=== PATIENT | female | born 1980 | race Caucasian/White ===

== ENCOUNTER 2016-11-22 17:35 | Emergency (ER) | payer OTHER ==
[2016-11-22 18:02] VITALS: BP 143/84
[2016-11-22] MEDS ORDERED: NS 0.9% 1000 ML* 1,000 ML IV ONE (18:38)
--- NOTE | 2016-11-22 19:12 | UC ---
chalino Rivera Timothy, scribed for Jimena Harmon MD on 11/22/16 at 1810 . Palpitation/Dysrhythmia HP - HPI Summary HPI Summary: Yareli Nicolas is a 36 yo female presenting to [facility] with heart palpitations at 1720 today. She was driving at the time of onset. She states Sx lasted approximately 15 minutes. She denies any pain, but states she was slightly SOB when talking, and felt a little light headed. She states upon arrival to [facility] she felt better, and that her heart was no longer racing. She has a Hx of hypothyroidism, SVT, sleep apnea, GERD, nephrolithiasis, fatty liver, depression , anxiety, and tobacco use for the past 12 years. - History of Current Complaint Stated Complaint: HEART RACING Time Seen by Provider: 11/22/16 18:11 Hx Obtained From: Patient, Family/Deputy [employer] - Hx Last Menstrual Period: currently having Onset/Duration: Sudden Onset Timing: Intermittent Episodes Lasting: - 15 minutes Severity Initially: Moderate Severity Currently: Moderate Pain Intensity: 0 Pain Scale Used: 0-10 Numeric Character: Fast, Irregular Aggravating Factor(s): Nothing Alleviating Factor(s): Nothing Associated Signs & Symptoms: Positive: Lightheadedness, Shortness of Breath. Negative: Chest Pain - Allergy/Home Medications Allergies/Adverse Reactions: Allergies Allergy/AdvReac Type Severity Reaction Status Date / Time Povidone Iodine Allergy Severe Rash Verified 11/22/16 17:53 [From Betadine] Penicillin V Allergy Intermediate Hives Verified 11/22/16 17:53 Adhesive Tape Allergy Rash Verified 11/22/16 17:53 Albuterol AdvReac Intermediate svt Verified 11/22/16 17:53 Home Medications: Home Medications Budesonide/Formote 160/4.5(NF) [Symbicort 160/4.5 (NF)] 1 puff BID 11/22/16 [ History Confirmed 11/22/16] Omeprazole CAP* [Prilosec CAP* 20 MG] 40 mg PO 0600 11/22/16 [History Confirmed 11/22/16] PMH/Surg Hx/FS Hx/Imm Hx Endocrine History Of: Reports: Hypothyroidism - "one of her numbers is abnormal " Denies: Diabetes, Hyperthyroidism, Dyslipidemia Cardiovascular History Of: Reports: Cardiac Disorders - svt Respiratory History Of: Reports: Asthma GI/ History Of: Reports: Gastroesophageal Reflux - She takes omeprazole for this, but she is not taking any at this time., Kidney Stones - ESWL 3-4 YRS AGO Psychological History Of: Reports: Anxiety - ON MEDS, Depression - ON MEDS - Surgical History Surgical History: Yes Surgery Procedure, Year, and Place[place] [place] [facility] [place] Calcane[place] [facility] [place]SI[place]/ ADENOIDECTOMY, 1987. gallbladder - Family History Known Family History: Positive: Cardiac Disease - Father from [place] at 48 years old. Negative: Hypertension, Diabetes - Social History Lives: With Family Alcohol Use: Rare Substance Use Type: None Smoking Status (MU): Former Smoker Type: Cigarettes Amount Used/How Often: 1/2 ppd Length of Time of Smoking/Using Tobacco: 10 years Have You Smoked in the Last Year: No When Did the Patient Quit Smoking/Using Tobacco: 2 WEEKS AGO Household Exposure Type: Cigarettes - Immunization History Most Recent Influenza Vaccination: none Review of Systems Constitutional: Negative Skin: Negative Eyes: Negative ENT: Negative Respiratory: Shortness Of Breath Cardiovascular: Palpitations Gastrointestinal: Negative Genitourinary: Negative Motor: Negative Neurovascular: Negative Musculoskeletal: Negative Neurological: Other - light-headedness Psychological: Anxious - with second bout of palpitations, pt is anxious, stating "I don't want to "-reassured All Other Systems Reviewed And Are Negative: Yes Physical Exam Triage Information Reviewed: Yes Appearance: Well-Appearing, Well-Nourished, Ill-Appearing - flushing in neck Vital Signs: Initial Vital Signs Temp 98 F 11/22/16 17:56 Pulse 112 11/22/16 17:56 Resp 18 11/22/16 17:56 BP 143/84 11/22/16 17:56 Pulse Ox 98 11/22/16 17:56 Vital Signs Reviewed: Yes Eyes: Positive: Conjunctiva Clear. Negative: Discharge ENT: Positive: Hearing grossly normal, Other: - enlarged thyroid. Negative: Muffled/hoarse voice Neck: Positive: Supple, Nontender, Other: - palpable enlarged thyroid Respiratory: Positive: Lungs clear, Normal breath sounds, No respiratory distress Cardiovascular: Positive: RRR - 88bpm, NSR, No Murmur, Pulses Normal, Brisk Capillary Refill Musculoskeletal: Positive: Strength Intact, ROM Intact Neurological: Positive: Alert, Muscle Tone Normal Psychological Exam: Normal Skin Exam: Normal Diagnostics - EKG Cardiac Rate: Tachycardia - 173: Sinus tachcardia, normal AV/IV conduction time. Rate is 109 bPM. Normal axis. No acute changes. 1822: Sinus tachycardia @ 104 BPM. Normal AV/IV conduction time, normal axis. No acute changes. No change from EKG 1736 today. Re-Evaluation - Re-Evaluation First Eval Re-Evaluation Time: 18:24 Change: Worse Comment: Pt states she is having another SVT episode, and her heart rate feels abnormally fast. Second Eval Re-Evaluation Time: 18:43 Change: Unchanged Comment: Pt is feeling anxious, her concerns are being soothed. She denies CP, her cardiac rate remains in the 100's, her lungs are clear. Palpitations Course/Dx - Course Course Of Treatment: Yareli Nicolas is a 36 yo female presenting to [facility] with heart palpitations at 1720 today while driving, as well as SOB and light- headedness. Her Sx resolved when she arrived at urgent care and then recurred. Pt auscultated by me at rate of approx 200 with second bout of palpitations. After review of her EKG's, clinical examination, and discussion with Dr. Caal at [facility], she will be transferred to [facility] for further evaluation and higher level of care - Differential Dx/Diagnosis Differential Diagnosis/HQI/PQRI: Medication Induced, Paroxymal SVT, Other - thyroid disease Provider Diagnoses: Palpitations/sinus tachycardia. hx SVT - Physician Notifications Discussed Patient Care With: 1829 - Dr. Caal (emergency medicine) - Discussed Pt condition, agrees to see in ED. 1830 - Dr. De Luna (cardiology) - Discussed Pt condition, confirmed that Pt should be sent to [facility]. 1832 - [facility] - Described Pt's symptoms, will transfer to [facility] Instructed by Provider To: MD Will See In ED Discharge - Discharge Plan Condition: Stable Disposition: TRANS [facility]HER [facility] Discharge Disposition Comment: Transferred to [facility] by ambulance for higher level of care Patient Education Materials: Supraventricular Tachycardia (ED), Palpitations ( ED) Referrals: Non Staff,Doctor [Medical Doctor] - 2 Days Additional Instructions: Please follow up with your primary care physician regarding your visit to urgent care today. Return to urgent care or the emergency department with any new or recurring symptoms. The documentation as recorded by the chalino donald Timothy accurately reflects the service I personally performed and the decisions made by me, Jimena Harmon MD.
== END 2016-11-22 19:00 | disposition short-term general hospital (02) ==
LOC: UCEAST 17:35
DX: R00.2 Palpitations (principal); R00.0 Tachycardia, unspecified; R42 Dizziness and giddiness; R06.02 Shortness of breath; Z88.0 Allergy status to penicillin; Z88.8 Allergy status to other drugs, medicaments and biological substances; Z87.891 Personal history of nicotine dependence
CPT/HCPCS: 93005; 99213; G0463

== ENCOUNTER → 2016-11-22 19:12 | Emergency (ER) | payer OTHER ==
[~2016-11-22 19:12] MED LIST: LORazepam TAB(*) 1 MG PO ONE
[2016-11-22 19:23] VITALS: BP 125/89
[2016-11-22 19:42] LABS: Hematocrit 39 % (35-47); Hemoglobin 12.7 g/dl (12.0-16.0); Mean Corpuscular HGB Conc 32 g/dl (31-36); Mean Corpuscular Hemoglobin 26 pg (27-31); Mean Corpuscular Volume 79 fL (80-97); Mean Platelet Volume 8 um3 (7.4-10.4); Red Blood Count 4.99 10^6/ul (4.0-5.4); Red Cell Distribution Width 15 % (10.5-15); White Blood Count 9.3 10^3/ul (3.5-10.8)
[2016-11-22 20:08] LABS: Albumin 4.3 g/dL (3.2-5.2); BUN/Creatinine Ratio 11.8 (8-20); Calcium 9.2 mg/dL (8.6-10.3); EGFR African American 96.8 (>60); EGFR Non-African American 75.3 (>60); Globulin 3.2 g/dL (2-4); Magnesium 2.1 mg/dL (1.9-2.7); Total Bilirubin 0.5 mg/dL (0.2-1.0); Total Protein 7.5 g/dL (6.4-8.9)
--- NOTE | 2016-11-22 21:16 | ED ---
Lauro Rivera Billy, scribed for Jaren Garcia MD on 11/22/16 at 1933 . Palpitations / Dysrhythmia - HPI Summary HPI Summary: Patient is a 36 year-old female with a history of SVT coming to [facility] from [facility] presenting with palpitations starting at 1720 today. She reports that her symptoms began at rest, while she was driving. Since the time of onset earlier this afternoon, she has had several episodes each lasting several minutes. She denies any pain at this time, but reports SOB and lightheadedness. Nothing makes her symptoms better or worse. She also reports feeling quite anxious here in the ED. The last episode of SVT prior to today was several months ago. She denies any known triggers (such as caffeine or nicotine) for todays episode. She follows Dr. Ro (cardiology) but states that she is currently not taking any medications. - History of Current Complaint Chief Complaint: EDDysrhythmPalp Time Seen by Provider: 11/22/16 19:14 Hx Obtained From: Patient Onset/Duration: Gradual Onset, Lasting Hours, Still Present Timing: Intermittent Episodes Lasting: - minutes Severity Initially: Moderate Severity Currently: Moderate Character: Fast Aggravating: Nothing Alleviating: Nothing Associated Signs & Symptoms: Lightheadedness, Shortness of Breath - Allergy/Home Medications Allergies/Adverse Reactions: Allergies Allergy/AdvReac Type Severity Reaction Status Date / Time Povidone Iodine Allergy Severe Rash Verified 11/22/16 17:53 [From Betadine] Penicillin V Allergy Intermediate Hives Verified 11/22/16 17:53 Adhesive Tape Allergy Rash Verified 11/22/16 17:53 Albuterol AdvReac Intermediate svt Verified 11/22/16 17:53 PMH/Surg Hx/FS Hx/Imm Hx Endocrine/Hematology History: Reports: Hx Thyroid Disease - HYPO, [place] FOR 7 MONTHS. Her thyroid blood tests were good w/o Rx. Denies: Hx Anticoagulant Therapy, Hx Diabetes Cardiovascular History: Denies: Hx Congestive Heart Failure, Hx Deep Vein Thrombosis, Hx Hypertension , Hx Myocardial Infarction, Hx Pacemaker/ICD, Other Cardiovascular Problems/ Disorders Respiratory History: Reports: Hx Asthma, Hx Sleep Apnea - SLEEP STUDY CURRENTLY Denies: Hx Chronic Obstructive Pulmonary Disease (COPD), Hx Lung Cancer, Hx Pneumonia, Hx Pulmonary Embolism, Other Respiratory Problems/Disorders GI History: Reports: Hx Gastroesophageal Reflux Disease Denies: Hx Gall Bladder Disease, Hx Gastrointestinal Bleed, Hx Ulcer, Hx Urosepsis History: Reports: Hx Kidney Infection, Hx Kidney Stones - ESWL 3-4 YRS AGO, Other Problems/Disorders - Kidney stone 3-4 years ago Denies: Hx Renal Disease Musculoskeletal History: Denies: Hx Rheumatoid Arthritis, Hx Osteoporosis Sensory History: Denies: Hx Contacts or Glasses, Hx Hearing Aid Opthamlomology History: Denies: Hx Contacts or Glasses Neurological History: Denies: Hx Dementia, Hx Migraine, Hx Seizures, Hx Transient Ischemic Attacks (TIA), Other Neuro Impairments/Disorders Psychiatric History: Reports: Hx Anxiety - ON MEDS, Hx Depression - ON MEDS Denies: Hx Panic Disorder, Hx Schizophrenia, Hx Bipolar Disorder - Cancer History Cancer Type, Location and Year: none - Surgical History Surgery Procedure, Year, and Place: Tubal Ligation 2005[place] [place]. RIGHT Kidney Stone surgery 3-4 years [place] [facility] [place],. Left FOOT Calcaneus repair 10 years ago [facility] [place] TONSILECTOMY/ ADENOIDECTOMY, 1987. gallbladder Hx Anesthesia Reactions: No - Immunization History Date of Tetanus Vaccine: 2012 Date of Influenza Vaccine: 2014 Infectious Disease History: No Infectious Disease History: Denies: Hx Clostridium Difficile, Hx Hepatitis, Hx Human Immunodeficiency Virus (HIV), Hx of Known/Suspected MRSA, Hx Shingles, Hx Tuberculosis, Hx Known/ Suspected VRE, Hx Known/Suspected VRSA, History Other Infectious Disease, Traveled Outside the [place] in Last 30 Days - Family History Known Family History: Positive: Cardiac Disease - Father from [place] at 48 years old. Negative: Hypertension, Diabetes - Social History Alcohol Use: Rare Substance Use Type: Reports: None Smoking Status (MU): Former Smoker Type: Cigarettes Amount Used/How Often: 1/2 ppd Length of Time of Smoking/Using Tobacco: 10 years Have You Smoked in the Last Year: No Review of Systems Positive: Palpitations Positive: Shortness Of Breath Neurological: Other - lightheaded Positive: Anxious All Other Systems Reviewed And Are Negative: Yes Physical Exam Triage Information Reviewed: Yes Vital Signs On Initial Exam: Initial Vitals Temp Pulse Resp BP Pulse Ox 99.1 F 94 14 125/89 98 11/22/16 19:18 11/22/16 19:18 11/22/16 19:18 11/22/16 19:18 11/22/16 19:18 Vital Signs Reviewed: Yes Appearance: Positive: Well-Appearing, No Pain Distress - anxious Skin: Positive: Warm Head/Face: Positive: Normal Head/Face Inspection Eyes: Positive: INGA Neck: Positive: Supple Respiratory/Lung Sounds: Positive: Clear to Auscultation, Breath Sounds Present Cardiovascular: Negative: Murmur Abdomen Description: Positive: Nontender, Soft Bowel Sounds: Positive: Present Neurological: Positive: Sensory/Motor Intact, Alert, Oriented to Person Place, Time Psychiatric: Positive: Anxious Diagnostics - Vital Signs Vital Signs Temp Pulse Resp BP Pulse Ox 11/22/16 19:18 99.1 F 94 14 125/89 98 - Laboratory Lab Results: Lab Results 11/22/16 11/22/16 Range/Units 18:35 18:35 WBC 9.3 (3.5-10.8) 10^3/ul RBC 4.99 (4.0-5.4) 10^6/ul Hgb 12.7 (12.0-16.0) g/dl Hct 39 (35-47) % MCV 79 L (80-97) fL MCH 26 L (27-31) pg MCHC 32 (31-36) g/dl RDW 15 (10.5-15) % Plt Count 341 (150-450) 10^3/ul MPV 8 (7.4-10.4) um3 Neut % (Auto) 46.1 (38-83) % Lymph % (Auto) 38.6 (25-47) % [place] % (Auto) 6.1 (1-9) % Eos % (Auto) 7.9 H (0-6) % Baso % (Auto) 1.3 (0-2) % Absolute Neuts (auto) 4.3 (1.5-7.7) 10^3/ul Absolute Lymphs (auto) 3.6 (1.0-4.8) 10^3/ul Absolute Monos (auto) 0.6 (0-0.8) 10^3/ul Absolute Eos (auto) 0.7 H (0-0.6) 10^3/ul Absolute Basos (auto) 0.1 (0-0.2) 10^3/ul Absolute Nucleated RBC 0 10^3/ul Nucleated RBC % 0 Sodium 135 (133-145) mmol/L Potassium 4.0 (3.5-5.0) mmol/L Chloride 102 (101-111) mmol/L Carbon Dioxide 27 (22-32) mmol/L Anion Gap 6 (2-11) mmol/L BUN 10 (6-24) mg/dL Creatinine 0.85 (0.51-0.95) mg/dL Est GFR ( Amer) 96.8 (>60) Est GFR (Non-Af Amer) 75.3 (>60) BUN/Creatinine Ratio 11.8 (8-20) Glucose 85 (70-100) mg/dL Calcium 9.2 (8.6-10.3) mg/dL Magnesium 2.1 (1.9-2.7) mg/dL Total Bilirubin 0.50 (0.2-1.0) mg/dL AST 36 (13-39) U/L ALT 46 (7-52) U/L Alkaline Phosphatase 101 (34-104) U/L Troponin I 0.00 (<0.04) ng/mL Total Protein 7.5 (6.4-8.9) g/dL Albumin 4.3 (3.2-5.2) g/dL Globulin 3.2 (2-4) g/dL Albumin/Globulin Ratio 1.3 (1-3) Result Diagrams: 11/22/16 18:35 11/22/16 18:35 Lab Statement: Any lab studies that have been ordered have been reviewed, and results considered in the medical decision making process. - EKG 1923 EKG Interpretation: NSR 90 bpm, no ST elevation Re-Evaluation - Re-Evaluation First Eval Change: Improved - results d/w pt Course/Dx - Diagnoses Provider Diagnoses: Palpitations Discharge - Discharge Plan Condition: Stable Disposition: HOME Patient Education Materials: Palpitations (ED), Supraventricular Tachycardia ( ED) Referrals: Sundeep Ro DO [Medical Doctor] - [place] [Primary Care Provider] - 1 Week Additional Instructions: FOLLOW UP WITH DR. RO WITHIN THE WEEK. The documentation as recorded by the Lauro donald Billy accurately reflects the service I personally performed and the decisions made by , Jaren Garcia MD.
== END | disposition home or self-care (01) ==
LOC: ED 19:12
DX: R00.2 Palpitations (principal); R42 Dizziness and giddiness; R06.02 Shortness of breath; Z87.891 Personal history of nicotine dependence; F41.9 Anxiety disorder, unspecified
CPT/HCPCS: 36415; 80053; 83735; 84484; 85025; 93005; 99282; A9270-GY

== ENCOUNTER 2016-12-29 18:17 | Emergency (ER) | payer OTHER ==
[2016-12-29 18:42] VITALS: BP 151/92
--- NOTE | 2016-12-29 19:53 | RAD ---
INDICATION: Shortness of breath, pain with cough, palpitations. COMPARISON: September 27, 2016 TECHNIQUE: Dual energy PA and routine lateral views of the chest were obtained. REPORT: Lung volumes are mildly elevated. Negative for alveolar consolidation, focal pulmonary lesion, pleural effusion, pneumothorax. The heart, pulmonary vasculature, and mediastinal contours are unremarkable. IMPRESSION: Elevated lung volumes suggesting potential obstructive lung disease without additional finding.
--- NOTE | 2016-12-29 23:59 | UC ---
Andrez Rivera Aidan, scribed for Stephanie Amin MD on 12/29/16 at 1921 . General HPI - HPI Summary HPI Summary: 36 y/o female presents to the Urgent Care with a complaint of acute, moderate, episodes of racing heart and difficulty breathing that began this morning. For the past 5 days, she has felt anxious, feverish, and generally sick. + cough, + wheezing. Has been using albuterol inhaler "a lot." Additionally, she has had wheezing, chest pressure midsternum during coughing, occasional nausea. 2 weeks ago, she had an event monitor 2/2 tachycardia and palpitations. Followed by [facility], Dr. Argueta. - History of Current Complaint Chief Complaint: UCChestPain Stated Complaint: HEART RACING, CHEST CONGESTION, AND SORE THROAT Time Seen by Provider: 12/29/16 18:34 Hx Obtained From: Patient Onset/Duration: Sudden Onset, Lasting Hours, Still Present Timing: Intermittent Episodes Lasting: Onset Severity: Moderate Current Severity: Moderate Pain Intensity: 0 Associated Signs & Symptoms: Positive: Chest Pain - during coughing, Other - sharp SANDHU, heart racing, difficulty breathing, feeling anxious and feverish, nausea, hot/cold flashes Similar Episode/Dx as: Dx: SVT - Allergy/Home Medications Allergies/Adverse Reactions: Allergies Allergy/AdvReac Type Severity Reaction Status Date / Time Povidone Iodine Allergy Severe Rash Verified 12/29/16 18:42 [From Betadine] Penicillin V Allergy Intermediate Hives Verified 12/29/16 18:42 Adhesive Tape Allergy Rash Verified 12/29/16 18:42 Albuterol AdvReac Intermediate svt Verified 12/29/16 18:42 PMH/Surg Hx/FS Hx/Imm Hx - Additional Past Medical History Additional PMH: Event monitor placed 2 weeks ago for SVT Previously Healthy: No - see hpi. Also hx mild hypothyroid, not on meds Endocrine History Of: Reports: Thyroid Disease - HYPO, [place] FOR 7 MONTHS. Her thyroid blood tests were good w/o Rx., Hypothyroidism - "one of her numbers is abnormal" Denies: Diabetes, Hyperthyroidism, Dyslipidemia Cardiovascular History Of: Reports: Cardiac Disorders Denies: Hypertension, Pacemaker/ICD, Myocardial Infarction, Congestive Heart Failure, Atrial Fibrillation, Deep Vein Thrombosis, Bleeding Disorders Respiratory History Of: Reports: Asthma Denies: COPD, Bronchitis, Pneumonia, Pulmonary Embolism GI/ History Of: Reports: Gastroesophageal Reflux - She takes omeprazole for this, but she is not taking any at this time., Kidney Stones - ESWL 3-4 YRS AGO Denies: Ulcer, Gastrointestinal Bleed, Gall Bladder Disease, Diverticulitis, Renal Disease, Urosepsis Neurological History Of: Denies: TIA, CVA, Dementia, Seizures, Migraine Psychological History Of: Reports: Anxiety - ON MEDS, Depression - ON MEDS Denies: Bipolar Disorder, Schizophrenia, Post Traumatic Stress Disorder Cancer History Of: Denies: Lung Cancer, Colorectal Cancer, Breast Cancer, Prostate Cancer, Cervical Cancer Other History Of: Negative For: HIV, Hepatitis B, Hepatitis C, Anticoagulant Therapy - Surgical History Surgical History: Yes Surgery Procedure, Year, and Place[place] [place] 3[place] [facility] [place]OT Calcaneus [place] 10 [place] [facility] [place] TONSI[place]OMY/ ADENOIDECTOMY, 1987. 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 Lives: With Family Alcohol Use: Rare Substance Use Type: None Smoking Status (MU): Former Smoker Type: Cigarettes Amount Used/How Often: 1/2 ppd Length of Time of Smoking/Using Tobacco: 10 years Have You Smoked in the Last Year: No When Did the Patient Quit Smoking/Using Tobacco: 2 WEEKS AGO Household Exposure Type: Cigarettes - Immunization History Most Recent Influenza Vaccination: none Review of Systems Constitutional: Chills - hot/cold sweats, Other - feeling feverish, nausea Skin: Negative Eyes: Negative ENT: Negative Respiratory: Other - cough min productive (feels like something needs to come up ), wheezing Cardiovascular: Palpitations, Chest Pain - during coughing Gastrointestinal: Negative Genitourinary: Negative Motor: Negative Neurovascular: Negative Musculoskeletal: Negative Neurological: Headache Psychological: Anxious All Other Systems Reviewed And Are Negative: Yes Physical Exam Triage Information Reviewed: Yes Appearance: Well-Nourished Vital Signs: Initial Vital Signs Temp 99.8 F 12/29/16 18:38 Pulse 108 12/29/16 18:38 Resp 20 12/29/16 18:38 BP 151/92 12/29/16 18:38 Pulse Ox 98 12/29/16 18:38 Vital Signs Reviewed: Yes Eye Exam: Normal, Other - watery eyes ENT Exam: Normal ENT: Positive: Nasal drainage - runny nose, Other: - Both EACs impacted with cerumen Neck exam: Normal Neck: Positive: No Lymphadenopathy Respiratory Exam: Other - bs equal. Diffuse insp / exp wheezing. No stridor. Speaking in full sentances, clearly. Respiratory: Positive: Wheezing - inspiratory and expiratory wheezes. Negative : Lungs clear, No respiratory distress Cardiovascular Exam: Normal - hr 90's, correlates with left radial pulse. No murmer detected, either sitting up or lying down. No jvd noted. Cardiovascular: Positive: No Murmur, Pulses Normal, Brisk Capillary Refill. Negative: RRR - mildly tachycardic Abdominal Exam: Normal Abdomen Description: Positive: Nontender, No Organomegaly, Soft Bowel Sounds: Positive: Present Musculoskeletal Exam: Normal Musculoskeletal: Positive: Strength Intact Neurological Exam: Normal, Other - non-focal, grossly intact Psychological Exam: Normal, Other - communicates approprietly and easily Skin Exam: Other - approx 0.75 cm area of redness Diagnostics - Radiology CHEST XR Xray Interpretation: No Acute Changes - IMPRESSION: Elevated lung volumes suggesting potential obstructive lung disease without additional finding. Radiology Interpretation Completed By: Radiologist - EKG Cardiac Rate: NL - 97 Re-Evaluation - Re-Evaluation First Eval Re-Evaluation Time: 20:05 - Dr. Amin discussed the patient's negative chest xr results with her. Change: Unchanged Course/Dx - Course Course Of Treatment: I reviewed ekg with Ms. Nicolas. C/w previous ekg as available in [employer], Nov 2016. D/w Dr. Mullins via telephone, reviewed previous office ekg. CXR - in [place]. Hyperexpanded, possible chronic obst pattern. Reviewed with pt. She stopped smoking 2 years ago. Will start medrol dose pack. She is hesitant but will consider starting tomorrow. Also will start doxycycline (URI, also skin infection as noted on abd wall). She has albuterol and xanax at home. Considered cardiac etiology, but this is more c/w pulmonary etiology (uri, wheeze, cough). She is wearing an event monitor. D/w pt the importance of checking pulse if she feels tachycardic and recording episode for the event monitor. She will need to f/u with her pcp, also will have thyroid rechecked then. She will call cardiology office early this week to let them know how she is doing, and arrange f/u. She is encouraged to go to the Emergency Department for any worse or new problems. Ms. Nicolsa and her were given the opportunity to ask several insightful questions, to which I answered to the best of my ability. - Differential Dx - Multi-Symptom Provider Diagnoses: uri. wheezing / sob. palpitations. dermatitis - Physician Notifications Discussed Patient Care With: Dr. Burgos (Cardiology) Time Discussed With Above Provider: 19:25 Discharge - Discharge Plan Condition: Stable Disposition: HOME Prescriptions: DOXYcycline CAP(*) [DOXYcycline 100MG CAP(*)] 100 mg PO BID #20 cap Methylprednisolone [Medrol Dosepak 4 MG*] 4 mg PO .SEE EMILY INSTRUCTION #1 packet Patient Education Materials: Palpitations (ED), Reactive Airways Disease (ED), Wheezing (ED) Forms: *Work Release Referrals: MIKE Crowley [Primary Care Provider] - Additional Instructions: Follow up with your primary care physician - call on Sunday to set up appointment for this week. Follow up with your sports book writer at [facility] - call on Sunday to let them know your symptoms, and how you are doing. If you have an episode of heart racing, please check your pulse, and record so that your event monitor can be reviewed. Go to the Emergency Department for any worse or new problems. The documentation as recorded by the Andrez donald Aidan accurately reflects the service I personally performed and the decisions made by me, Stephanie Amin MD.
== END 2016-12-29 21:10 | disposition home or self-care (01) ==
LOC: UCEAST 18:17
DX: J06.9 Acute upper respiratory infection, unspecified (principal); R06.2 Wheezing; R06.02 Shortness of breath; R00.2 Palpitations; L30.9 Dermatitis, unspecified; H61.23 Impacted cerumen, bilateral; Z90.49 Acquired absence of other specified parts of digestive tract; Z88.0 Allergy status to penicillin; Z88.8 Allergy status to other drugs, medicaments and biological substances; Z87.891 Personal history of nicotine dependence
CPT/HCPCS: 71020; 87502; 93005; 99212; G0463

== ENCOUNTER 2017-01-16 14:02 | Emergency (ER) | payer SELFPAY ==
[2017-01-16 15:01] VITALS: BP 128/79
--- NOTE | 2017-01-16 15:48 | UC ---
Back Pain HPI - HPI Summary HPI Summary: Patient has been under significant stress related to family issues. she has tension and pain along the back of the neck, between the shoulder blades. it goes into the shoulders at times. denies any trauma, states it has been increasing over the last few weeks. - History of Current Complaint Chief Complaint: UCGeneralIllness Stated Complaint: HEAD/NECK/UPPER BACK PAIN Time Seen by Provider: 01/16/17 15:19 Hx Obtained From: Patient Hx Last Menstrual Period: 01/12/17 Onset/Duration: Gradual Onset, Lasting Weeks Timing: Constant Severity Initially: Mild Severity Currently: Severe Back Pain: Is Diffuse - upper back and shoulders Character: Dull, Aching, Stiffness Aggravating: Movement Alleviating: Position - Allergies/Home Medications Allergies/Adverse Reactions: Allergies Allergy/AdvReac Type Severity Reaction Status Date / Time Povidone Iodine Allergy Severe Rash Verified 01/16/17 14:51 [From Betadine] Penicillin V Allergy Intermediate Hives Verified 01/16/17 14:51 Adhesive Tape Allergy Rash Verified 01/16/17 14:51 Albuterol AdvReac Intermediate svt Verified 01/16/17 14:51 Home Medications: Home Medications Ferrous Sulfate [Iron (Ferrous Sulfate)] 1 tab BID 01/16/17 [History Confirmed 01/16/17] metroNIDAZOLE TAB* [Flagyl 250 mg TAB*] 1 tab BID 01/16/17 [History Confirmed ] PMH/Surg Hx/FS Hx/Imm Hx Previously Healthy: Yes Endocrine History Of: Reports: Thyroid Disease - HYPO, [place] FOR 7 MONTHS. Her thyroid blood tests were good w/o Rx., Hypothyroidism - "one of her numbers is abnormal" Denies: Diabetes, Hyperthyroidism, Dyslipidemia Cardiovascular History Of: Reports: Cardiac Disorders - SVT Denies: Hypertension, Pacemaker/ICD, Myocardial Infarction, Congestive Heart Failure, Atrial Fibrillation, Deep Vein Thrombosis, Bleeding Disorders Respiratory History Of: Reports: Asthma Denies: COPD, Bronchitis, Pneumonia, Pulmonary Embolism GI/ History Of: Reports: Gastroesophageal Reflux - She takes omeprazole for this, but she is not taking any at this time., Kidney Stones - ESWL 3-4 YRS AGO Denies: Ulcer, Gastrointestinal Bleed, Gall Bladder Disease, Diverticulitis, Renal Disease, Urosepsis Neurological History Of: Denies: TIA, CVA, Dementia, Seizures, Migraine Psychological History Of: Reports: Anxiety - ON MEDS, Depression - ON MEDS Denies: Bipolar Disorder, Schizophrenia, Post Traumatic Stress Disorder Cancer History Of: Denies: Lung Cancer, Colorectal Cancer, Breast Cancer, Prostate Cancer, Cervical Cancer Other History Of: Negative For: HIV, Hepatitis B, Hepatitis C, Anticoagulant Therapy - Surgical History Surgical History: Yes Surgery Procedure, Year, and Place: Tubal Ligation 2005,[facility] [place]. RIGHT Kidney Stone surgery 3-4 years ago [facility] [place],. Left FOOT Calcaneus repair 10 years ago [facility] [place]. TONSILECTOMY/ ADENOIDECTOMY, 1987. gallbladder - Family History Known Family History: Positive: None, Cardiac Disease - Father from [place] at 48 years old., Other - thyroid problems Negative: Hypertension, Diabetes - Social History Alcohol Use: None Substance Use Type: None Smoking Status (MU): Former Smoker Type: Cigarettes Amount Used/How Often: 1/2 ppd Length of Time of Smoking/Using Tobacco: 10 years Have You Smoked in the Last Year: No When Did the Patient Quit Smoking/Using Tobacco: 2 WEEKS AGO Household Exposure Type: Cigarettes - Immunization History Most Recent Influenza Vaccination: None Most Recent Pneumonia Vaccination: N/A Review of Systems Constitutional: Negative Skin: Negative Eyes: Negative ENT: Negative Respiratory: Negative Cardiovascular: Negative Gastrointestinal: Negative Genitourinary: Negative Motor: Negative Neurovascular: Negative Musculoskeletal: Arthralgia, Decreased ROM, Myalgia Neurological: Negative Psychological: Negative All Other Systems Reviewed And Are Negative: Yes Physical Exam Triage Information Reviewed: Yes Appearance: Well-Appearing, Well-Nourished, Pain Distress Vital Signs: Initial Vital Signs Temp 97.7 F 01/16/17 14:55 Pulse 83 01/16/17 14:55 Resp 18 01/16/17 14:55 BP 128/79 01/16/17 14:55 Pulse Ox 100 01/16/17 14:55 Vital Signs Reviewed: Yes Eye Exam: Normal Eyes: Positive: Conjunctiva Clear ENT Exam: Normal ENT: Positive: Hearing grossly normal, Pharynx normal, TMs normal Dental Exam: Normal Neck exam: Normal Neck: Positive: Supple, Nontender, No Lymphadenopathy Respiratory Exam: Normal Respiratory: Positive: Chest non-tender, Lungs clear, Normal breath sounds Cardiovascular Exam: Normal Cardiovascular: Positive: RRR, No Murmur Abdominal Exam: Normal Abdomen Description: Positive: Nontender, No Organomegaly, Soft Bowel Sounds: Positive: Present Musculoskeletal: Positive: Strength Intact, ROM Limited @ - with shoulder ext, neck lateral flex, flx and rotation Neurological Exam: Normal Neurological: Positive: Alert, Muscle Tone Normal Psychological Exam: Normal Skin Exam: Normal Back Pain Course/Dx - Course Course Of Treatment: hx obtained , exam performed, meds reveiwed, treatment given, educated on proper stretching. patient starte to feel relief with the stretches performed. - Differential Dx/Diagnosis Differential Diagnosis/HQI/PQRI: Arthritis, Fracture, Herniated Disc, Strain, Sprain Provider Diagnoses: muscle spasm Discharge - Discharge Plan Condition: Stable Disposition: HOME Patient Education Materials: Muscle Spasm (ED) Referrals: MIKE Crowley [Primary Care Provider] - Additional Instructions: I recommend heat and stretching. Try the stretches that we reviewed today and follow up with massage. Ibuprofen or aleve for pain if needed.
== END 2017-01-16 16:09 | disposition home or self-care (01) ==
LOC: UCCORT 14:02
DX: M62.838 Other muscle spasm (principal); M54.2 Cervicalgia; M54.6 Pain in thoracic spine; F41.8 Other specified anxiety disorders; Z87.442 Personal history of urinary calculi; Z90.49 Acquired absence of other specified parts of digestive tract; Z88.0 Allergy status to penicillin; Z88.8 Allergy status to other drugs, medicaments and biological substances; Z87.891 Personal history of nicotine dependence
CPT/HCPCS: 99211; G0463

== ENCOUNTER 2017-01-25 06:33 | Emergency (ER) | payer MEDICAID, OTHER ==
--- NOTE | 2017-01-25 08:14 | ED ---
Throat Pain/Nasal Congestion - HPI Summary HPI Summary: 36 female presents with complaints of feeling as though something is stuck in her throat and dysphagia since 2am this morning. Patient has been able to drink however, it does not help the remove the foreign body sensation. She has not taken any medication for this. States the she was unable to sleep due to the discomfort. She describes the discomfort as though her espohagus is "sandip /spasms" every couple of seconds and the pain radiates into the back of her neck. She denies vomiting, difficulty breathing and abdominal pain. She admits to feeling a bit nauseous. Has a history of GERD that she takes Omeprazole daily for and eosinophilic esophagitis but she has not had any previous episodes like today. Denies fever/chills, difficulty breathing, abdominal pain, coughing and chest pain. - History of Current Complaint Chief Complaint: EDForeignBodyEsophag Time Seen by Provider: 01/25/17 07:31 Hx Obtained From: Patient Onset/Duration: Sudden Onset, Lasting Hours Severity: Moderate Associated Signs And Symptoms: Positive: Dysphagia, FB Sensation Cough: None - Allergies/Home Medications Allergies/Adverse Reactions: Allergies Allergy/AdvReac Type Severity Reaction Status Date / Time Povidone Iodine Allergy Severe Rash Verified 01/25/17 06:42 [From Betadine] Penicillin V Allergy Intermediate Hives Verified 01/25/17 06:42 Adhesive Tape Allergy Rash Verified 01/25/17 06:42 Albuterol AdvReac Intermediate svt Verified 01/25/17 06:42 PMH/Surg Hx/FS Hx/Imm Hx Endocrine/Hematology History: Reports: Hx Thyroid Disease - HYPO, [place] FOR 7 MONTHS. Her thyroid blood tests were good w/o Rx. Denies: Hx Anticoagulant Therapy, Hx Diabetes Cardiovascular History: Denies: Hx Congestive Heart Failure, Hx Deep Vein Thrombosis, Hx Hypertension , Hx Myocardial Infarction, Hx Pacemaker/ICD, Other Cardiovascular Problems/ Disorders Respiratory History: Reports: Hx Asthma, Hx Sleep Apnea - SLEEP STUDY CURRENTLY Denies: Hx Chronic Obstructive Pulmonary Disease (COPD), Hx Lung Cancer, Hx Pneumonia, Hx Pulmonary Embolism, Other Respiratory Problems/Disorders GI History: Reports: Hx Gastroesophageal Reflux Disease, Other GI Disorders - eosinophilic esophagitis Denies: Hx Gall Bladder Disease, Hx Gastrointestinal Bleed, Hx Ulcer, Hx Urosepsis History: Reports: Hx Kidney Infection, Hx Kidney Stones - ESWL 3-4 YRS AGO, Other Problems/Disorders - Kidney stone 3-4 years ago Denies: Hx Renal Disease Musculoskeletal History: Denies: Hx Rheumatoid Arthritis, Hx Osteoporosis Sensory History: Denies: Hx Contacts or Glasses, Hx Hearing Aid Opthamlomology History: Denies: Hx Contacts or Glasses Neurological History: Denies: Hx Dementia, Hx Migraine, Hx Seizures, Hx Transient Ischemic Attacks (TIA), Other Neuro Impairments/Disorders Psychiatric History: Reports: Hx Anxiety - ON MEDS, Hx Depression - ON MEDS Denies: Hx Panic Disorder, Hx Schizophrenia, Hx Bipolar Disorder - Cancer History Cancer Type, Location and Year: none - Surgical History Surgery Procedure, Year, and Place: Tubal Ligation 2005,[facility] [place]. RIGHT Kidney Stone surgery 3-4 years ago [facility] [place],. Left FOOT Calcaneus repair 10 years ago [facility]. TONSILECTOMY/ ADENOIDECTOMY, 1987. gallbladder Hx Anesthesia Reactions: No - Immunization History Date of Tetanus Vaccine: 2012 Date of Influenza Vaccine: 2014 Infectious Disease History: No Infectious Disease History: Denies: Hx Clostridium Difficile, Hx Hepatitis, Hx Human Immunodeficiency Virus (HIV), Hx of Known/Suspected MRSA, Hx Shingles, Hx Tuberculosis, Hx Known/ Suspected VRE, Hx Known/Suspected VRSA, History Other Infectious Disease, Traveled Outside the [place] in Last 30 Days - Family History Known Family History: Positive: None, Cardiac Disease - Father from [place] at 48 years old., Other - thyroid problems Negative: Hypertension, Diabetes - Social History Alcohol Use: None Substance Use Type: Reports: None Hx Tobacco Use: Yes Smoking Status (MU): Former Smoker Type: Cigarettes Amount Used/How Often: 1/2 ppd Length of Time of Smoking/Using Tobacco: 10 years Have You Smoked in the Last Year: No Review of Systems Constitutional: Negative Positive: Other - dysphagia, FB sensation Cardiovascular: Negative Respiratory: Negative Gastrointestinal: Negative Musculoskeletal: Negative Skin: Negative Neurological: Negative All Other Systems Reviewed And Are Negative: Yes Physical Exam Triage Information Reviewed: Yes Vital Signs On Initial Exam: Initial Vitals Temp Pulse Resp BP Pulse Ox 97.6 F 83 14 144/88 100 01/25/17 06:37 01/25/17 06:37 01/25/17 06:37 01/25/17 06:37 01/25/17 06:37 Vital Signs Reviewed: Yes Appearance: Positive: Well-Appearing, Well-Nourished, Pain Distress - minimal, at times Skin: Positive: Warm, Skin Color Reflects Adequate Perfusion, Dry Head/Face: Positive: Normal Head/Face Inspection Eyes: Positive: Normal, Conjunctiva Clear ENT: Positive: Normal ENT inspection, Hearing grossly normal, Pharynx normal, TMs normal. Negative: Pharyngeal erythema, Nasal congestion, Nasal drainage, Tonsillar swelling, Tonsillar exudate, Trismus, Muffled/hoarse voice Dental: Negative: Cervical Lymphadenopathy Neck: Positive: Supple, Nontender, No Lymphadenopathy, Other: - no swelling or deformity palpated, thyroid of normal size without nodules. Negative: Nuchal Rigidity, Tenderness @, Enlarged Nodes @ Respiratory/Lung Sounds: Positive: Clear to Auscultation, Breath Sounds Present. Negative: Stridor, Tracheal Deviation, Wheezes, Unable to speak in full sentences Cardiovascular: Positive: Normal, RRR, Pulses are Symmetrical in both Upper and Lower Extremities Abdomen Description: Positive: Nontender, No Organomegaly, Soft. Negative: CVA Tenderness (R), CVA Tenderness (L), Distended, Guarding, Peritoneal Signs Bowel Sounds: Positive: Present Musculoskeletal: Positive: Normal, Strength/ROM Intact Neurological: Positive: Normal, Sensory/Motor Intact, Alert, Oriented to Person Place, Time, CN Intact II-III, Reflexes Intact, NV Bundle Intact Distally, Normal Gait Psychiatric: Positive: Normal - Moore Coma Scale Coma Scale Total: 15 Diagnostics - Vital Signs Vital Signs Temp Pulse Resp BP Pulse Ox 01/25/17 06:37 97.6 F 83 14 144/88 100 - Laboratory Lab Statement: Any lab studies that have been ordered have been reviewed, and results considered in the medical decision making process. Re-Evaluation - Re-Evaluation First Eval Re-Evaluation Time: 08:45 Change: Unchanged - patient is aware of the procedure and current course of treatment Second Eval Re-Evaluation Time: 11:30 Change: Unchanged - Patient was feeling better, ready to d/c after normal results of endoscopy. EENT Course/Dx - Course Course Of Treatment: due to patients complaints and normal PE findings, GI was consulted and patient was NPO. Dr Bhat stated he would come do an endoscopy in ED to rule out FB obstruction and esophageal spasms. Endoscopy procedure was preformed around 10am and normal per Dr Bhat. Patient has eosinophilic esophagitis previously diagnosed. Given Coralate and Omeprazole to take at home. Awaiting biopsy results. Follow up with GI. Fluids and aware of worsening signs and symptoms. Follow up with PCP. Also recommended Ibuprofen in case it is an inflammatory process. - Differential Diagnoses Differential Diagnoses: Foreign Body, Other - Diagnoses Provider Diagnoses: Foreign body sensation in throat, Eosinophilic esophagitis - Provider Notifications Discussed Care of Patient with: Dr Bhat Time Discussed With Above Provider: 08:25 - Also spoke with Dr Bhat after procedure 11:50am Instructed by Provider To: MD Will See In ED Discharge - Discharge Plan Condition: Stable Disposition: HOME Forms: *Work Release Referrals: MIKE Crowley [Primary Care Provider] - Lv Bhat MD [Medical Doctor] - Additional Instructions: Take prescribed medication given to you by GI specialist. Eat and drink soft foods. Avoid chicken at this time until results from biopsies area received as this may have exacerbated your eosinophilic esophagitis. Drink plenty of fluids. If symptoms persist, new symptoms develop or symptoms worsen please return to ED promptly. Make an appointment for follow up with Dr Bhat's office.
[2017-01-25] MEDS ORDERED: Midazolam* 1 MG/ML 10 ML VIAL (10 MG) ONE (09:10)
[2017-01-25] MEDS ORDERED: Meperidine SYRINGE* 50 MG/ML ONE (09:10)
[2017-01-25 11:53] VITALS: BP 101/51
--- NOTE | 2017-01-25 14:09 | CONS ---
CONSULTATION REPORT: DATE OF CONSULT: 01/25/17 LOCATION OF CONSULTATION: [facility] – [place] Emergency Department, Room 15. INDICATION: Dysphagia. NARRATIVE: Mrs. Nicolas is a 36-year-old female with a known history of eosinophilic esophagitis. I have seen her and performed an EGD twice on her in the past. Each time biopsies were revealing of eosinophilic esophagitis. I had treated her with Flovent swallowed mist. However, the patient states she had a difficult time swallowing the mist. The patient states last night she was eating chicken tenders and it felt like one became stuck. She went to bed, slept through the night. However, this morning she awoke and felt like there was something stuck in her esophagus. It is uncomfortable. She states when she swallows it feels like there is an up and down motion within her esophagus. The patient is able to swallow her own saliva. The patient is able to swallow water. She has not tried to eat anything. PAST MEDICAL HISTORY: Significant for herniated disk, depression, bronchitis, anxiety, history of UTIs, otitis media, GERD, thyroid cyst, hypothyroid, adjustment disorder with depressed mood, hypercholesterolemia, IBS, asthma. PAST SURGICAL HISTORY: None. FAMILY HISTORY: No esophageal malignancies in the family. SOCIAL HISTORY: She quit smoking. Rarely drinks alcohol. REVIEW OF SYSTEMS: Twelve systems were reviewed, other than that mentioned in the HPI were unremarkable. PHYSICAL EXAM: Temperature is 97.6, blood pressure is 144/88, pulse is 83, respiratory rate of 14. General: Well appearing female in no apparent distress. Alert, oriented, pleasant, and fluent. HEENT: Mucous membranes are moist without lesions, ulcers, or exudate. Neck is supple. Trachea is midline. Head is normocephalic, atraumatic. Heart: Regular rate and rhythm. No murmurs. Lungs: Clear to auscultation bilaterally. No wheezes, rales or rhonchi. Abdomen is obese. Positive bowel sounds. Soft, nontender, nondistended. No hepatosplenomegaly, masses, rebound or guarding. Skin is warm and dry, numerous tattoos. DIAGNOSTIC STUDIES/LAB DATA: Labs of note, none. ASSESSMENT AND PLAN: This is a 36-year-old female with a history of eosinophilic esophagitis in the past. The patient states that she feels like there is something stuck in her esophagus. She is able to swallow her own saliva and liquids. Likely she has some esophageal irritation that is causing this sensation. I think it is unlikely she had an esophageal foreign body right now. However, I will perform an EGD in the emergency room for further evaluation. [id number]/[facility] #: [id number] MTDD
--- NOTE | 2017-01-25 22:16 | PRO ---
PROCEDURE REPORT: DATE OF PROCEDURE: 01/25/17 PROCEDURE: EGD. INDICATION: Esophageal foreign body. MEDICATIONS GIVEN: 1. 100 mg IV Demerol. 2. 10 mg IV Versed. The procedure was performed in the emergency room. DESCRIPTION OF PROCEDURE: After the EGD procedure including the risks, benefits , and alternatives not limited to perforation, surgery and/or were explained to Mrs. Nicolas and her and sister, written consent was then obtained, IV medication was given, and a bite-block was placed between the teeth. An Olympus gastroscope was then inserted into the patient's mouth, advanced down the esophagus, into the stomach, into the distal duodenum. In the esophagus at the GE junction, no erosive esophagitis, stricture, or ring was seen. She did have a few fine rings throughout the entirety of the esophageal body potentially consistent with eosinophilic esophagitis. The patient has been diagnosed with eosinophilic esophagitis twice by me in the past 9 years; however, only one of those times did she take medication for it and she tells me that she really did not follow through with the entire prescription. Scope was advanced through the GE junction. She did have a medium sized hiatal hernia into the body of the stomach. Retroflex and forward views were unremarkable. The scope was advanced through a widely patent pylorus , into the duodenal bulb, into the distal duodenum, both of which were unremarkable. Scope was then withdrawn into the esophagus where biopsies were again obtained to evaluate for eosinophilic esophagitis. No foreign body was seen at all. The scope was withdrawn from the patient. She tolerated the procedure well and was returned to the recovery room in stable condition. IMPRESSION: 1. Complete upper endoscopy into the distal duodenum with biopsies. 2. No esophageal foreign body. 3. Biopsies for eosinophilic esophagitis. 4. Hiatal hernia. 5. I will follow up on the biopsies. If she is still positive for eosinophilic esophagitis, I will call in another prescription for Flovent for her and I encouraged her to take the full 6-week course. I will also call in a prescription for omeprazole and Carafate due to her complaints of esophageal burning. 6. 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 [id number]/[facility] #: [id number] [facility]
== END 2017-01-25 12:11 | disposition home or self-care (01) ==
LOC: ED 06:33
DX: R09.89 Other specified symptoms and signs involving the circulatory and respiratory systems (principal); K20.0 Eosinophilic esophagitis; K21.9 Gastro-esophageal reflux disease without esophagitis; F41.9 Anxiety disorder, unspecified; F32.9 Major depressive disorder, single episode, unspecified; E03.9 Hypothyroidism, unspecified; Z88.0 Allergy status to penicillin; Z87.891 Personal history of nicotine dependence
CPT/HCPCS: 88305; 99283; J2250

== ENCOUNTER 2017-03-24 13:02 | Emergency (ER) | payer OTHER ==
[2017-03-24 13:07] VITALS: BP 119/86
--- NOTE | 2017-03-24 13:09 | UC ---
Progress - Progress Note Progress Note: Father [place] age 52, Mom alive with CHF age 57, subjective sensation of tachycardia last night today heart is irregular--denies CP
--- NOTE | 2017-03-24 13:42 | UC ---
Palpitation/Dysrhythmia HP - HPI Summary HPI Summary: The patient comes in today for: 1. Palpitations "I've had a lot of problems of my heart skipping and racing." "My anxiety is super high." Onset: Last night Palliative/provocative: Nothing makes her palpitations better or worse. Quality: Palpitations. Region: Chest/ CVS Severity: No pain. Time: Comes and goes. Associated symptoms: She states that she was waking up last night with palpitations. She states the heart rate was 120-130's. Caffeine, energy drinks, rare alcohol. She was seeing a rotary filter operator, but she missed to many appointments to be able to return. She states that she has been diagnosed as having SVT. "very rarely I get short of breath." "I feel lightheaded for a second or two." She does not have any symptoms at this time. She was seen last by the rotary filter operator 6 months. She states that she has has multiple tests "stress test, echocardiograms, stress echos, heart monitors", etc ) and all were OK by the patient's report. The patient states that she can 't go back to see that rotary filter operator because she missed "too many appointments." Frequency: Her palpitations have happened 3 times today. She states that the palpitations may last a few minutes or for a few hours. 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 Hx Last Menstrual Period: 03/06/17 - Allergy/Home Medications Allergies/Adverse Reactions: Allergies Allergy/AdvReac Type Severity Reaction Status Date / Time Povidone Iodine Allergy Severe Rash Verified 01/25/17 06:42 [From Betadine] Penicillin V Allergy Intermediate Hives Verified 01/25/17 06:42 Adhesive Tape Allergy Rash Verified 01/25/17 06:42 Albuterol AdvReac Intermediate svt Verified 01/25/17 06:42 Home Medications: Home Medications Metoprolol & Hydrochlorothiazi [Metoprolol Succinate ER/H 25-12.5 mg] 1 tab PO 03/24/17 [History] PMH/Surg Hx/FS Hx/Imm Hx Previously Healthy: No Cardiovascular History: Cardiac Disease - SVT by her report diagnosed by cadiology. Respiratory History: Asthma GI/ History: Gastroesophageal Reflux Psychological History: Anxiety Other History Of: Negative For: HIV, Hepatitis B, Hepatitis C, Anticoagulant Therapy - Surgical History Surgical History: Yes Surgery Procedure, Year, and Place: Tubal Ligation 2005,[facility] [place]. RIGHT Kidney Stone surgery 3-4 years ago [facility] [place],. Left FOOT Calcaneus repair 10 years ago [facility] [place]. TONSILECTOMY/ ADENOIDECTOMY, 1987. gallbladder - Family History Known Family History: Positive: Cardiac Disease - Father from [place] at 48 years old., Other - thyroid problems Negative: Hypertension, Diabetes - Social History Occupation: Employed Full-time Alcohol Use: Rare Substance Use Type: None Smoking Status (MU): Former Smoker Type: Cigarettes Amount Used/How Often: 1/2 ppd Length of Time of Smoking/Using Tobacco: 10 years Have You Smoked in the Last Year: No When Did the Patient Quit Smoking/Using Tobacco: 2 WEEKS AGO Household Exposure Type: Cigarettes - Immunization History Most Recent Influenza Vaccination: None Most Recent Pneumonia Vaccination: N/A Review of Systems Constitutional: Negative Skin: Negative Eyes: Negative ENT: Negative Respiratory: Negative Cardiovascular: Negative Gastrointestinal: Negative Genitourinary: Negative All Other Systems Reviewed And Are Negative: Yes Physical Exam Triage Information Reviewed: Yes Appearance: Well-Appearing, No Pain Distress, Well-Nourished Vital Signs: Initial Vital Signs Temp 98.5 F 03/24/17 13:04 Pulse 87 03/24/17 13:04 Resp 18 03/24/17 13:04 BP 119/86 03/24/17 13:04 Pulse Ox 99 03/24/17 13:04 Vital Signs Reviewed: Yes Eyes: Positive: Conjunctiva Clear ENT: Positive: Hearing grossly normal. Negative: Pharyngeal erythema, Nasal congestion, Nasal drainage, TM bulging, TM dull, TM red, Tonsillar swelling, Tonsillar exudate Dental: Negative: Gross Decay/Caries @, Dental Fracture @ Neck: Positive: Supple, Nontender, No Lymphadenopathy. Negative: Nuchal Rigidity Respiratory: Positive: Chest non-tender, Lungs clear, No respiratory distress, No accessory muscle use. Negative: Crackles, Wheezing Cardiovascular: Positive: RRR, No Murmur Abdomen Description: Positive: Nontender, No Organomegaly, Soft. Negative: Distended, Guarding Musculoskeletal: Positive: Strength Intact, ROM Intact, No Edema Neurological: Positive: Alert, Muscle Tone Normal Psychological: Positive: Age Appropriate Behavior, Consolable Skin: Negative: rashes, breakdown Palpitations Course/Dx - Course Course Of Treatment: Patient was told to follow up with a rotary filter operator and her primary care provider. Until she does, she is recommended to go from 25 mg a day of metoprolol succinate to 25 mg bid and see one of the above providers for re-evaluation. If she gets worse, she should go to the ER. - Differential Dx/Diagnosis Provider Diagnoses: palpitations Discharge - Discharge Plan Condition: Stable Disposition: HOME Patient Education Materials: Palpitations (ED) Referrals: MIKE Crowley [Primary Care Provider] - As Soon As Possible (Please see your primary care provider as soon as you can for re-evaluation of your palpitations. IF you get worse, please go to the ER. ) [facility] [place] PHYSICIAN REFERRAL [Outside]
== END 2017-03-24 14:06 | disposition home or self-care (01) ==
LOC: UCEAST 13:02
DX: R00.2 Palpitations (principal); I47.1 Supraventricular tachycardia
CPT/HCPCS: 93005; 99211; G0463

== ENCOUNTER 2017-04-15 15:24 | Emergency (ER) | payer OTHER ==
[2017-04-15 16:20] VITALS: BP 128/79
[2017-04-15] MEDS ORDERED: Ibuprofen TAB* 600 MG PO ONE (16:26)
--- NOTE | 2017-04-15 17:17 | RAD ---
HISTORY: Left ankle trauma COMPARISONS: Left foot dated August 29, 2015 VIEWS: 3, Frontal, lateral, and oblique views of the left ankle FINDINGS: BONE DENSITY: Normal. BONES: The patient is status post internal fixation of the calcaneus. There is no hardware failure or osteolysis. There is a a linear lucency consistent with a probable nondisplaced fracture of the tip of lateral malleolus. JOINTS: There is no arthropathy. ALIGNMENT: There is no dislocation. SOFT TISSUES: There is circumferential soft tissue swelling. OTHER FINDINGS: None. IMPRESSION: 1. PROBABLE NONDISPLACED FRACTURE OF THE LATERAL MALLEOLUS. 2. SOFT TISSUE SWELLING. 3. POST SURGICAL CHANGE TO THE CALCANEUS.
--- NOTE | 2017-04-15 17:24 | UC ---
Lower Extremity/Ankle HPI - HPI Summary HPI Summary: pt reports with c/o of left lateral ankle swelling and pain s/p falling in hole last night. - History of Current Complaint Chief Complaint: UCLowerExtremity Stated Complaint: LEFT ANKLE INJURY Time Seen by Provider: 04/15/17 16:47 Hx Obtained From: Patient Hx Last Menstrual Period: 04/01/17 ?: No Onset/Duration: Gradual Onset, Lasting Hours Severity Initially: Mild Severity Currently: Moderate Aggravating Factor(s): Standing, Ambulation Alleviating Factor(s): Rest, Elevation Able to Bear Weight: Yes - minimal - Risk Factors Gout Risk Factors: Obesity - prrior ankle surgery and fracture - Allergies/Home Medications Allergies/Adverse Reactions: Allergies Allergy/AdvReac Type Severity Reaction Status Date / Time Povidone Iodine Allergy Severe Rash Verified 04/15/17 16:20 [From Betadine] Penicillin V Allergy Intermediate Hives Verified 04/15/17 16:20 Adhesive Tape Allergy Rash Verified 04/15/17 16:20 Albuterol AdvReac Intermediate svt Verified 04/15/17 16:20 Home Medications: Home Medications Ferrous Gluconate [Ferrotabs] 1 tab PO BID 04/15/17 [History Confirmed 04/15/17] Ibuprofen [Advil] 800 mg PO Q8HR 04/15/17 [History Confirmed 04/15/17] Ranitidine HCl [Zantac] 1 tab PO DAILY 04/15/17 [History Confirmed 04/15/17] PMH/Surg Hx/FS Hx/Imm Hx Previously Healthy: Yes Other History Of: Negative For: HIV, Hepatitis B, Hepatitis C, Anticoagulant Therapy - Surgical History Surgical History: Yes Surgery Procedure, Year, and Place: Tubal Ligation 2006,[facility] [place]. RIGHT Kidney Stone surgery 3-4 years ago [facility] [place],. Left FOOT Calcaneus repair 10 years ago [facility] [place]. TONSILECTOMY/ ADENOIDECTOMY, 1987. gallbladder. Sinus Surgery 2015 - Family History Known Family History: Positive: Cardiac Disease - Father from [place] at 48 years old., Other - thyroid problems Negative: Hypertension, Diabetes - Social History Alcohol Use: Rare Substance Use Type: None Smoking Status (MU): Former Smoker Type: Cigarettes Amount Used/How Often: 1/2 ppd Length of Time of Smoking/Using Tobacco: 10 years Have You Smoked in the Last Year: No When Did the Patient Quit Smoking/Using Tobacco: 2 WEEKS AGO Household Exposure Type: Cigarettes - Immunization History Most Recent Influenza Vaccination: None Most Recent Pneumonia Vaccination: N/A Review of Systems Constitutional: Negative Skin: Bruising - left lateral malleolus Eyes: Negative ENT: Negative Respiratory: Negative Cardiovascular: Negative Gastrointestinal: Negative Genitourinary: Negative Motor: Decreased ROM - left ankle Neurovascular: Negative Musculoskeletal: Arthralgia - left ankle, Edema - left lateral malleolus, Myalgia Neurological: Negative Psychological: Negative All Other Systems Reviewed And Are Negative: Yes Physical Exam Triage Information Reviewed: Yes Appearance: Well-Appearing Vital Signs: Initial Vital Signs Temp 98.8 F 04/15/17 16:15 Pulse 89 04/15/17 16:15 Resp 16 04/15/17 16:15 BP 128/79 04/15/17 16:15 Pulse Ox 97 04/15/17 16:15 Vital Signs Reviewed: Yes Eye Exam: Normal Neck exam: Normal Respiratory Exam: Other Respiratory: Positive: No respiratory distress Musculoskeletal: Positive: Strength Limited @ - left ankle, ROM Limited @ - left ankle, Edema @ - left lateral malleolus Neurological Exam: Normal Psychological Exam: Normal Skin Exam: Normal Lower Extremity Course/Dx - Differential Dx/Diagnosis Differential Diagnosis/HQI/PQRI: Fracture (Closed) Provider Diagnoses: left ankle fracture. IMPRESSION: 1. PROBABLE NONDISPLACED FRACTURE OF THE LATERAL MALLEOLUS. 2. SOFT TISSUE SWELLING. 3. POST SURGICAL CHANGE TO THE CALCANEUS. Discharge - Discharge Plan Condition: Stable Disposition: HOME Patient Education Materials: Ankle Fracture (ED) Referrals: Jose Abad MD [Medical Doctor] - MIKE Crowley [Primary Care Provider] - 1 Day Additional Instructions: Please follow up with the Orthopedic provider we have provided. You have also indicated that you have a pair of crutches at home for your use. Please use the crutches and remain non weight bearing on the affected ankle until cleared by an orthopedic provider.
== END 2017-04-15 18:13 | disposition home or self-care (01) ==
LOC: UCCORT 15:24
DX: S82.65XA Nondisplaced fracture of lateral malleolus of left fibula, initial encounter for closed fracture (principal); W17.2XXA Fall into hole, initial encounter; Y93.79 Activity, other specified sports and athletics; Y92.9 Unspecified place or not applicable; Z87.442 Personal history of urinary calculi; Z90.49 Acquired absence of other specified parts of digestive tract; Z88.0 Allergy status to penicillin; Z88.8 Allergy status to other drugs, medicaments and biological substances; Z91.048 Other nonmedicinal substance allergy status; Z87.891 Personal history of nicotine dependence
CPT/HCPCS: 99212; A9270-GY; G0463

== ENCOUNTER 2017-06-12 09:09 | Emergency (ER) | payer OTHER ==
--- NOTE | 2017-06-12 10:35 | UC ---
Back Pain HPI - HPI Summary HPI Summary: neck and upper back pain limited ROM in neck has been getting worse over past 2 weeks - History of Current Complaint Chief Complaint: UCBackPain Stated Complaint: BACK PAIN Time Seen by Provider: 06/12/17 10:27 Hx Obtained From: Patient Hx Last Menstrual Period: 05/27/17 ?: No Onset/Duration: Gradual Onset, Lasting Weeks - 2, Still Present Timing: Constant Severity Initially: Moderate Severity Currently: Moderate Pain Intensity: 8 Pain Scale Used: 0-10 Numeric Back Pain: Is Discrete @ - center of neck Character: Aching, Spasmodic, Stiffness Aggravating: Movement Alleviating: Nothing - Allergies/Home Medications Allergies/Adverse Reactions: Allergies Allergy/AdvReac Type Severity Reaction Status Date / Time Povidone Iodine Allergy Severe Rash Verified 06/12/17 09:44 [From Betadine] Penicillin V Allergy Intermediate Hives Verified 06/12/17 09:44 Adhesive Tape Allergy Rash Verified 06/12/17 09:44 Albuterol AdvReac Intermediate svt Verified 06/12/17 09:44 Home Medications: Home Medications DULoxetine DR CAP* [Cymbalta CAP*] 60 mg PO DAILY 06/12/17 [History Confirmed ] Levothyroxine TAB* [Synthroid TAB*] 50 mcg PO DAILY 06/12/17 [History Confirmed 06/12/17] PMH/Surg Hx/FS Hx/Imm Hx Previously Healthy: No Cardiovascular History: Hypertension Respiratory History: Asthma Psychological History: Depression Other History Of: Negative For: HIV, Hepatitis B, Hepatitis C, Anticoagulant Therapy - Surgical History Surgical History: Yes Surgery Procedure, Year, and Place: Tubal Ligation 2005,[facility] [place]. RIGHT Kidney Stone surgery 3-4 years ago [facility] [place],. Left FOOT Calcaneus repair 10 years ago [facility] [place]. TONSILECTOMY/ ADENOIDECTOMY, 1987. gallbladder. Sinus Surgery 2016 - Family History Known Family History: Positive: None, Cardiac Disease - Father from [place] at 48 years old., Other - thyroid problems Negative: Hypertension, Diabetes - Social History Occupation: Employed Full-time Lives: With Family Alcohol Use: Rare Substance Use Type: None Smoking Status (MU): Former Smoker Type: Cigarettes Amount Used/How Often: 1/2 ppd Length of Time of Smoking/Using Tobacco: 10 years Have You Smoked in the Last Year: No When Did the Patient Quit Smoking/Using Tobacco: 2 WEEKS AGO Household Exposure Type: Cigarettes - Immunization History Most Recent Influenza Vaccination: None Most Recent Pneumonia Vaccination: N/A Review of Systems Constitutional: Negative Skin: Negative Eyes: Negative ENT: Negative Respiratory: Negative Cardiovascular: Negative Gastrointestinal: Negative Genitourinary: Negative Motor: Decreased ROM - turning neck to right and left Neurovascular: Negative Musculoskeletal: Arthralgia - neck Neurological: Negative Psychological: Negative All Other Systems Reviewed And Are Negative: Yes Physical Exam Triage Information Reviewed: Yes Appearance: Well-Appearing, Well-Nourished, Pain Distress Vital Signs: Initial Vital Signs Temp 97.7 F 06/12/17 09:39 Pulse 75 06/12/17 09:39 Resp 20 06/12/17 09:39 BP 137/90 06/12/17 09:39 Pulse Ox 97 06/12/17 09:39 Vital Signs Reviewed: Yes Eye Exam: Normal Eyes: Positive: Conjunctiva Clear ENT Exam: Normal ENT: Positive: Normal ENT inspection, Hearing grossly normal, TMs normal. Negative: Nasal congestion, Nasal drainage, Trismus, Muffled/hoarse voice Dental Exam: Normal Neck exam: Normal Neck: Positive: Supple, No Lymphadenopathy, Tenderness @ - right left and center of neck. Negative: Nuchal Rigidity Respiratory Exam: Normal Respiratory: Positive: Chest non-tender, Lungs clear, Normal breath sounds, No respiratory distress, No accessory muscle use Cardiovascular Exam: Normal Cardiovascular: Positive: RRR, No Murmur, Pulses Normal, Brisk Capillary Refill Musculoskeletal Exam: Other Musculoskeletal: Positive: Strength Intact, No Edema, ROM Limited @ - 45degress right and left turn 2with neck Neurological Exam: Normal Neurological: Positive: Alert, Muscle Tone Normal Psychological Exam: Normal Skin Exam: Normal Diagnostics - Radiology No standard instances Xray Interpretation: Positive (See Comments) - [id number], c-spine degeneratio C5, cervical straightening Radiology Interpretation Completed By: Radiologist Re-Evaluation - Re-Evaluation First Eval Change: Improved - "some" pain relief with Toradol Back Pain Course/Dx - Course Course Of Treatment: mobic, tizanadine, rst, general exercise follow with pcp, patient refused out of work note - Differential Dx/Diagnosis Differential Diagnosis/HQI/PQRI: Arthritis, Herniated Disc, Strain, Sprain Provider Diagnoses: muscle spasm neck, ddd Discharge - Discharge Plan Condition: Stable Disposition: HOME Prescriptions: Cyclobenzaprine TAB* [Flexeril 10 MG TAB*] 10 mg PO TID PRN #21 tab PRN Reason: Pain Meloxicam(NF) [Mobic(NF)] 7.5 mg PO BID PRN #60 tab PRN Reason: Pain Tizanidine HCl 2 - 4 mg PO QID PRN #40 cap PRN Reason: Muscle strain Patient Education Materials: Spasmodic Torticollis (ED), Muscle Spasm (ED), Core Strengthening Exercises (GEN) Referrals: MIKE Crowley [Primary Care Provider] - 5 Days
[2017-06-12] MEDS ORDERED: Ketorolac INJ* 60 MG/2 ML VIAL IM ONE (10:36)
--- NOTE | 2017-06-12 11:17 | RAD ---
INDICATION: Neck pain COMPARISON: None TECHNIQUE: Routine five-view imaging was performed FINDINGS: Bones: There are no acute bony findings. There are arthritic changes consisting of mild disc space narrowing about C4-C5. Craniocervical junction: The odontoid and atlantodental interval are normal. Alignment: Cervical spine straightening Disc spaces: The remaining disc spaces are well-maintained Soft tissues: The prevertebral soft tissues are normal. 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
--- NOTE | 2017-06-12 11:18 | RAD ---
INDICATION: Back pain COMPARISON: None TECHNIQUE: Routine 2 view imaging was performed FINDINGS: Bones: There are no acute bony findings. There are no significant osteoarthritic findings. Alignment: There is moderate kyphosis Disc spaces: The disc spaces are well-maintained Soft tissues: There are no soft tissue abnormalities. IMPRESSION: MODERATE KYPHOSIS
[2017-06-12 11:45] VITALS: BP 108/64
== END 2017-06-12 11:40 | disposition home or self-care (01) ==
LOC: UCEAST 09:09
DX: M62.830 Muscle spasm of back (principal); M50.321 Other cervical disc degeneration at C4-C5 level; M40.204 Unspecified kyphosis, thoracic region; I10 Essential (primary) hypertension; J45.909 Unspecified asthma, uncomplicated; F32.9 Major depressive disorder, single episode, unspecified; Z88.3 Allergy status to other anti-infective agents; Z88.0 Allergy status to penicillin; Z88.8 Allergy status to other drugs, medicaments and biological substances; Z91.048 Other nonmedicinal substance allergy status; Z87.891 Personal history of nicotine dependence
CPT/HCPCS: 72050; 72070; 96372; 99212; G0463; J1885

== ENCOUNTER 2017-07-20 20:27 | Emergency (ER) | payer OTHER ==
[2017-07-20 20:36] VITALS: BP 136/77
--- NOTE | 2017-07-29 16:52 | UC ---
Kevan Rivera Nikita, scribed for Casandra Montelongo DO on 07/20/17 at 2053 . Upper Extremity HPI - HPI Summary HPI Summary: This patient is a 37 year old F presenting to [facility] with a chief complaint of R inner brachium pain s/p getting a tattoo 2 days ago. The CC is described as swollen, bruising, warm, mushy, discolored, and aching. The patient rates the pain 4/10 in severity. Symptoms aggravated by nothing. Symptoms alleviated by nothing. Patient reports cramping, feeling crappy today, gassy, nausea, and feeling the heat radiating from it. Patient denies fever, chills, CP, SOB, sore throat, ear ache, SANDHU, and vomiting. Pt denies taking BCP. - History of Current Complaint Chief Complaint: UCSkin Stated Complaint: SKIN COMPLAINT Time Seen by Provider: 07/20/17 20:40 Hx Obtained From: Patient Hx Last Menstrual Period: tubal ligation Onset/Duration: Sudden Onset, Lasting Days - 2 days ago, Still Present Severity Initially: Moderate Severity Currently: Moderate Pain Intensity: 4 Pain Scale Used: 0-10 Numeric Location Of Pain: Is Discrete @ - R brachium Character: Aching - swollen, bruising, warm, mushy, discolored, and aching Aggravating Factor(s): Nothing Alleviating Factor(s): Nothing Associated Signs And Symptoms: Positive: Other - Patient reports cramping, feeling crappy today, gassy, nausea, and feeling the heat radiating from it . Patient denies fever, chills, CP, SOB, sore throat, ear ache, SANDHU, and vomiting. - Allergies/Home Medications Allergies/Adverse Reactions: Allergies Allergy/AdvReac Type Severity Reaction Status Date / Time Povidone Iodine Allergy Severe Rash Verified 07/20/17 21:41 [From Betadine] Penicillin V Allergy Intermediate Hives Verified 07/20/17 21:41 Adhesive Tape Allergy Rash Verified 07/20/17 21:41 Albuterol AdvReac Intermediate svt Verified 07/20/17 21:41 PMH/Surg Hx/FS Hx/Imm Hx Other Cardiovascular History: SVT Psychological History: Anxiety, Depression Other Cancer History: Hashimotos Disease Other History Of: Negative For: HIV, Hepatitis B, Hepatitis C, Anticoagulant Therapy - Surgical History Surgical History: Yes Surgery Procedure, Year, and Place: [place]al [place] [place] 3-4 years [place] [facility] [place] Left FOOT Calcaneus repair 10 [place] [facility] [place] TONSILECTOMY/ ADENOIDECTOMY, 1987. gallbladder. Sinus Surgery 2016 - Family History Known Family History: Positive: Cardiac Disease - Father from [place] at 48 years old., Other - thyroid problems Negative: Hypertension, Diabetes - Social History Alcohol Use: Rare Substance Use Type: None Smoking Status (MU): Former Smoker Type: Cigarettes Amount Used/How Often: 1/2 ppd Length of Time of Smoking/Using Tobacco: 10 years Have You Smoked in the Last Year: No When Did the Patient Quit Smoking/Using Tobacco: 2 WEEKS AGO Household Exposure Type: Cigarettes - Immunization History Most Recent Influenza Vaccination: None Most Recent Pneumonia Vaccination: N/A Review of Systems Constitutional: Other - feeling crappy today; denies fever, chills Skin: Bruising - swollen, bruising, warm, mushy, discolored, and aching at R brachium, Other - feeling the heat radiating from it ENT: Negative Respiratory: Negative Cardiovascular: Negative Gastrointestinal: Other - cramping, gassy, nausea; denies vomiting Neurological: Negative All Other Systems Reviewed And Are Negative: Yes Physical Exam Triage Information Reviewed: Yes Appearance: Well-Appearing, No Pain Distress, Well-Nourished Vital Signs: Initial Vital Signs Temp 97.5 F 07/20/17 20:31 Pulse 84 07/20/17 20:31 Resp 18 07/20/17 20:31 BP 136/77 07/20/17 20:31 Pulse Ox 100 07/20/17 20:31 Vital Signs Reviewed: Yes Eyes: Positive: Conjunctiva Clear. Negative: Discharge ENT: Positive: Hearing grossly normal, Other: - Normal voice. Negative: Muffled /hoarse voice Neck exam: Normal Neck: Positive: Supple Respiratory: Positive: Lungs clear, Normal breath sounds, No respiratory distress, No accessory muscle use Cardiovascular: Positive: RRR, No Murmur Musculoskeletal Exam: Normal Neurological: Positive: Alert, Muscle Tone Normal Psychological Exam: Normal Psychological: Positive: Age Appropriate Behavior Skin Exam: Other - R upper arm is diffusely edematous. ~13x20 cm area of non- blanching and reddened discoloration (positive to calor and hot) over medial aspect of distal 2/3 of brachium. The entire brachium, even that which is proximal to discoloration is tender when squeezed. Upper Extremity Course/Dx - Course Course Of Treatment: This patient is a 37 year old F presenting to [facility] with a chief complaint of R inner brachium pain s/p getting a tattoo 2 days ago. The CC is described as swollen, bruising, warm, mushy, discolored, and aching. The patient rates the pain 4/10 in severity. Symptoms aggravated by nothing. Symptoms alleviated by nothing. Patient reports cramping, feeling crappy today , gassy, nausea, and feeling the heat radiating from it. Patient denies fever , chills, CP, SOB, sore throat, ear ache, SANDHU, and vomiting. Consulted Dr. Camarillo at 2099 who says maybe she should just be sent for an US. Consulted Dr. Spears at [address] Camarillo. Medications reviewed this visit. Pt will be discharged. Pt is agreeable with this plan. - Differential Dx/Diagnosis Provider Diagnoses: Cellulitis. Edema. - Physician Notification/Consults Discussed Patient Care With: Luiz Camarillo Time Discussed With Above Provider: 21:00 Instructed by Provider To: Other - Consulted Dr. Camarillo who says maybe she should just be sent for an US. Consulted Dr. Spears at [address] Camarillo. Discharge - Discharge Plan Condition: Stable Disposition: HOME Patient Education Materials: Cellulitis (ED), Edema (ED) Referrals: [place] [facility] [Primary Care Provider] - (FOLLOW UP DIRECTED BY EMERGENCY DEPARTMENT) Additional Instructions: WE ARE CONCERNED ABOUT THE POSSIBILITY OF A BLOOD CLOT. SO WE RECOMMEND THAT YOU GO TO THE EMERGENCY DEPARTMENT IMMEDIATELY FOR IMAGING TO RULE OUT THAT POSSIBILITY. AT THE ED, THEY WILL LIKELY START YOU ON AN ANTIBIOTIC TO TREAT YOU FOR POSSIBLE INFECTION. The documentation as recorded by the Kevan donald Nikita accurately reflects the service I personally performed and the decisions made by me, Casandra Montelongo DO.
== END 2017-07-20 21:18 | disposition home or self-care (01) ==
LOC: UCEAST 20:27
DX: L03.113 Cellulitis of right upper limb (principal); R60.9 Edema, unspecified; E06.3 Autoimmune thyroiditis; F41.9 Anxiety disorder, unspecified; F32.9 Major depressive disorder, single episode, unspecified; Z87.442 Personal history of urinary calculi; Z90.49 Acquired absence of other specified parts of digestive tract; Z88.0 Allergy status to penicillin; Z87.891 Personal history of nicotine dependence
CPT/HCPCS: 99211; G0463

== ENCOUNTER 2017-07-20 21:33 | Emergency (ER) | payer OTHER ==
[2017-07-20] MEDS ORDERED: Cephalexin CAP* 500 MG PO ONE (23:21)
[2017-07-21 00:17] VITALS: BP 124/76
--- NOTE | 2017-07-21 00:28 | ED ---
Skin Complaint - HPI Summary HPI Summary: Patient presents to the ED with CC of left arm ecchymosis, swelling and warmth after receiving a tattoo 2 days ago. Sent here from [facility] to r/o blood clot. She states she awoke yesterday with the ecchymosis and it became slightly worse today. Denies pain. She has had many tattoos, never with this reaction before. Denies blood thinners. Denies sweats, chills or fevers. She is otherwise healthy. - History of Current Complaint Chief Complaint: EDRashSkinAbscess Time Seen by Provider: 07/20/17 22:42 Stated Complaint: POSS RIGHT ARM BLOOD CLOT/SENT FROM CC Hx Obtained From: Patient Hx Last Menstrual Period: tubal ligation Onset/Duration: Started Days Ago Skin Exposure Onset/Duration: Hours Ago Timing: Constant Onset Severity: Moderate Current Severity: Moderate Pain Intensity: 0 Pain Scale Used: 0-10 Numeric Skin Location: Discrete - left upper arm Character: Swelling Aggravating Symptom(s): Nothing Alleviating Symptom(s): Nothing Associated Signs & Symptoms: Negative Related History: Trauma - Additional Pertinent History Primary Care Physician: TIFFANY - Allergy/Home Medications Allergies/Adverse Reactions: Allergies Allergy/AdvReac Type Severity Reaction Status Date / Time Povidone Iodine Allergy Severe Rash Verified 07/20/17 21:41 [From Betadine] Penicillin V Allergy Intermediate Hives Verified 07/20/17 21:41 Adhesive Tape Allergy Rash Verified 07/20/17 21:41 Albuterol AdvReac Intermediate svt Verified 07/20/17 21:41 PMH/Surg Hx/FS Hx/Imm Hx Previously Healthy: Yes Endocrine/Hematology History: Reports: Hx Thyroid Disease - Hashimotos Disease Denies: Hx Anticoagulant Therapy, Hx Diabetes Cardiovascular History: Denies: Hx Congestive Heart Failure, Hx Deep Vein Thrombosis, Hx Hypertension , Hx Myocardial Infarction, Hx Pacemaker/ICD, Other Cardiovascular Problems/ Disorders Respiratory History: Reports: Hx Asthma, Hx Sleep Apnea - SLEEP STUDY CURRENTLY Denies: Hx Chronic Obstructive Pulmonary Disease (COPD), Hx Lung Cancer, Hx Pneumonia, Hx Pulmonary Embolism, Other Respiratory Problems/Disorders GI History: Reports: Hx Gastroesophageal Reflux Disease, Other GI Disorders - eosinophilic esophagitis Denies: Hx Gall Bladder Disease, Hx Gastrointestinal Bleed, Hx Ulcer, Hx Urosepsis History: Reports: Hx Kidney Infection, Hx Kidney Stones - [facility] 3-4 YRS AGO, Other Problems/Disorders - Kidney stone 3-4 years ago Denies: Hx Renal Disease Musculoskeletal History: Denies: Hx Rheumatoid Arthritis, Hx Osteoporosis Sensory History: Denies: Hx Contacts or Glasses, Hx Hearing Aid Opthamlomology History: Denies: Hx Contacts or Glasses Neurological History: Denies: Hx Dementia, Hx Migraine, Hx Seizures, Hx Transient Ischemic Attacks (TIA), Other Neuro Impairments/Disorders Psychiatric History: Reports: Hx Anxiety - ON MEDS, Hx Depression - ON MEDS Denies: Hx Panic Disorder, Hx Schizophrenia, Hx Bipolar Disorder - Cancer History Cancer Type, Location and Year: none - Surgical History Surgery Procedure, Year, and Place: Tubal Ligation 2005,[facility] [place]. RIGHT Kidney Stone surgery 3-4 years ago [facility] [place],. Left FOOT Calcaneus repair 10 years ago [facility] [place]. TONSILECTOMY/ ADENOIDECTOMY, 1987. gallbladder. Sinus Surgery 2016 Hx Anesthesia Reactions: No - Immunization History Date of Tetanus Vaccine: 2012 Date of Influenza Vaccine: 2014 Hx Pertussis Vaccination: No Immunizations Up to Date: Unable to Obtain/Confirm Infectious Disease History: No Infectious Disease History: Denies: Hx Clostridium Difficile, Hx Hepatitis, Hx Human Immunodeficiency Virus (HIV), Hx of Known/Suspected MRSA, Hx Shingles, Hx Tuberculosis, Hx Known/ Suspected VRE, Hx Known/Suspected VRSA, History Other Infectious Disease, Traveled Outside the [place] in Last 30 Days - Family History Known Family History: Positive: None, Cardiac Disease - Father from [place] at 48 years old., Other - thyroid problems Negative: Hypertension, Diabetes - Social History Occupation: Employed Full-time Lives: With Family Alcohol Use: Rare Hx Substance Use: No Substance Use Type: Reports: None Hx Tobacco Use: Yes Smoking Status (MU): Former Smoker Type: Cigarettes Amount Used/How Often: 1/2 ppd Length of Time of Smoking/Using Tobacco: 10 years Have You Smoked in the Last Year: No Review of Systems Constitutional: Negative Eyes: Negative Cardiovascular: Negative Respiratory: Negative Genitourinary: Negative Positive: no symptoms reported, see HPI Musculoskeletal: Negative Positive: Bruising Neurological: Negative Psychological: Normal All Other Systems Reviewed And Are Negative: Yes Physical Exam Triage Information Reviewed: Yes Vital Signs On Initial Exam: Initial Vitals Temp Pulse Resp BP Pulse Ox 97.5 F 83 14 157/94 97 07/20/17 21:35 10/13/17 21:35 07/20/17 21:35 07/20/17 21:35 07/20/17 21:35 Vital Signs Reviewed: Yes Appearance: Positive: Well-Appearing, Well-Nourished Skin: Positive: Warm, Skin Color Reflects Adequate Perfusion, Other - ecchymosis to the right upper arm - [place] Coma Scale Coma Scale Total: 15 Diagnostics - Vital Signs Vital Signs Temp Pulse Resp BP Pulse Ox 07/21/17 00:16 97.2 F 80 124/76 99 07/20/17 21:35 97.5 F 83 14 157/94 97 - Laboratory Lab Statement: Any lab studies that have been ordered have been reviewed, and results considered in the medical decision making process. Course/Dx - Course Course Of Treatment: US negative for blood clots. Dr. Tate to see patient as well. Both agreed d/t warmth and slight swelling, will start on keflex x 7 days. Given 1 dose in ED and one to dispense to home. Patient is OK with plan and [facility] - Differential Diagnoses - Skin Complaint Differential Diagnoses: Cellulitis - Diagnoses Provider Diagnoses: Cellulitis Discharge - Discharge Plan Condition: Stable Disposition: HOME Prescriptions: Cephalexin CAP* [Keflex CAP*] 500 mg PO QID #20 cap MDD 4 Patient Education Materials: Cellulitis (ED) Referrals: MIKE Crowley [Primary Care Provider] - Additional Instructions: Please follow up if any symptoms become worse Take the Keflex as prescribed
--- NOTE | 2017-07-21 06:58 | RAD ---
INDICATION: Right arm swelling evaluate for abscess. COMPARISON: There are no prior studies available for comparison. TECHNIQUE: Multiple real-time images of the right arm were obtained. FINDINGS: There is edema in the upper medial portion of the right arm. No focal fluid collection or abscess is seen. IMPRESSION: NO EVIDENCE FOR ABSCESS.
== END 2017-07-21 00:16 | disposition home or self-care (01) ==
LOC: ED 21:33
DX: L03.90 Cellulitis, unspecified (principal); Z87.891 Personal history of nicotine dependence
CPT/HCPCS: 99282; A9270-GY

== ENCOUNTER 2017-08-29 09:45 | Emergency (ER) | payer OTHER ==
[2017-08-29 09:58] VITALS: BP 128/86
--- NOTE | 2017-09-13 11:29 | UC ---
Throat Pain/Nasal Regino HPI - HPI Summary HPI Summary: 37 yo female with bilateral otalgia and sore throat x weeks] no f/c no ringing in ears and decreased hearing had appt with ENT early DEC sinus pressure and pain post nasal drip - History of Current Complaint Chief Complaint: UCRespiratory Stated Complaint: EAR AND THROAT PAIN Time Seen by Provider: 08/29/17 10:43 Hx Last Menstrual Period: 08/17/2017 Onset/Duration: Gradual Onset Pain Intensity: 0 Pain Scale Used: 0-10 Numeric Cough: None - Epiglottits Risk Factors Epiglottis Risk Factors: Negative - Allergies/Home Medications Allergies/Adverse Reactions: Allergies Allergy/AdvReac Type Severity Reaction Status Date / Time Povidone Iodine Allergy Severe Rash Verified 08/29/17 09:51 [From Betadine] Penicillin V Allergy Intermediate Hives Verified 08/29/17 09:51 Adhesive Tape Allergy Rash Verified 08/29/17 09:51 Albuterol AdvReac Intermediate svt Verified 08/29/17 09:51 Home Medications: Home Medications Levothyroxine TAB* [Synthroid TAB*] 75 mcg PO DAILY 08/29/17 [History Confirmed 08/29/17] PMH/Surg Hx/FS Hx/Imm Hx Previously Healthy: Yes Endocrine History: Hyperthyroidism Respiratory History: Asthma Other History Of: Negative For: HIV, Hepatitis B, Hepatitis C, Anticoagulant Therapy - Surgical History Surgical History: Yes Surgery Procedure, Year, and Place: [place] [place] 3-4 years [place] [facility] [place] Left FOOT Calcaneus [place] 10 [place] [facility] [place]SILECTOMY/ ADENOIDECTOMY, 1987. gallbladder 2016. Sinus Surgery 2016 - Family History Known Family History: Positive: None, Cardiac Disease - Father from [place] at 48 years old., Other - thyroid problems Negative: Hypertension, Diabetes - Social History Alcohol Use: Rare Substance Use Type: None Smoking Status (MU): Former Smoker Type: Cigarettes Amount Used/How Often: 1/2 ppd Length of Time of Smoking/Using Tobacco: 10 years Have You Smoked in the Last Year: No When Did the Patient Quit Smoking/Using Tobacco: 2 WEEKS AGO Household Exposure Type: Cigarettes - Immunization History Most Recent Influenza Vaccination: None Most Recent Pneumonia Vaccination: N/A Review of Systems Constitutional: Fatigue Skin: Negative Eyes: Negative ENT: Sore Throat, Ear Ache, Nasal Discharge, Sinus Congestion, Sinus Pain/ Tenderness Respiratory: Negative Cardiovascular: Negative Gastrointestinal: Negative Genitourinary: Negative Motor: Negative Neurovascular: Negative Musculoskeletal: Negative Neurological: Negative Psychological: Negative Is Patient Immunocompromised?: No All Other Systems Reviewed And Are Negative: Yes Physical Exam Triage Information Reviewed: Yes Appearance: Well-Appearing, No Pain Distress, Well-Nourished Vital Signs: Initial Vital Signs Temp 98.4 F 08/29/17 09:54 Pulse 86 08/29/17 09:54 Resp 18 08/29/17 09:54 BP 128/86 08/29/17 09:54 Pulse Ox 100 08/29/17 09:54 Vital Signs Reviewed: Yes Eyes: Positive: Conjunctiva Clear ENT: Positive: Pharyngeal erythema, TM bulging, Hoarse voice, Sinus tenderness, Uvula midline. Negative: Muffled voice Neck: Positive: Supple, Nontender, No Lymphadenopathy Respiratory: Positive: Lungs clear, Normal breath sounds, No respiratory distress Cardiovascular: Positive: RRR, No Murmur Neurological: Positive: Alert Psychological Exam: Normal Skin Exam: Normal Throat Pain/Nasal Course/Dx - Course Course Of Treatment: strep (-) - Differential Dx/Diagnosis Provider Diagnoses: acute sinusitis. bilateral serous otitis media Discharge - Discharge Plan Condition: Stable Disposition: HOME Prescriptions: ceFUROXime TAB(*) [Ceftin TAB(*)] 250 mg PO BID #20 tab Prednisone [Deltasone] 40 mg PO DAILY #10 tab Patient Education Materials: Sinusitis (ED) Referrals: Brittanie Bates MD [Primary Care Provider] - Additional Instructions: see ENT 09/10 as directed
== END 2017-08-29 11:00 | disposition home or self-care (01) ==
LOC: UCEAST 09:45
DX: J01.90 Acute sinusitis, unspecified (principal); H65.93 Unspecified nonsuppurative otitis media, bilateral; E05.90 Thyrotoxicosis, unspecified without thyrotoxic crisis or storm; J45.909 Unspecified asthma, uncomplicated; Z88.0 Allergy status to penicillin; Z87.891 Personal history of nicotine dependence
CPT/HCPCS: 87651; 99212; G0463

== ENCOUNTER 2017-10-20 21:08 | Emergency (ER) | payer OTHER ==
[2017-10-20 21:20] VITALS: BP 134/77
--- NOTE | 2017-10-20 21:36 | UC ---
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 Sharp pain that radiates to her back." sx started 3 days ago. sharp, lasts for a few mins and returns every 5 mins. h/ o SVT - takes beta kayleigh, never had ablation. Sx have become more frequent and intense in pain today which made her come in. -pain is mid sternal chest pain. radiates to mid back. has no CP now but does have mid thoracic back pain. -radiates into rt neck. + nausea, no vomiting -sx feel similar to when she had GB problems (removed 2014 or 2015). has not had issues since then. -no fevers or chills. -has had mavis colored stools x 3 days since these sx started, but nml stools o/ w. no jaundice or icterus. no dark urine. -Mom + blood clots, pt unknwn if any genetic factors. no personal h/o blood clots. she had tubal and not on OCPs. denies pain/swelling in legs. - History of Current Complaint Chief Complaint: UCChestPain Stated Complaint: CHEST PAIN Time Seen by Provider: 10/20/17 21:10 Hx Last Menstrual Period: 10/12/17 - Allergy/Home Medications Allergies/Adverse Reactions: Allergies Allergy/AdvReac Type Severity Reaction Status Date / Time Povidone Iodine Allergy Severe Rash Verified 10/20/17 21:21 [From Betadine] Penicillin V Allergy Intermediate Hives Verified 10/20/17 21:21 Adhesive Tape Allergy Rash Verified 10/20/17 21:21 Albuterol AdvReac Intermediate svt Verified 10/20/17 21:21 PMH/Surg Hx/FS Hx/Imm Hx Previously Healthy: Yes Endocrine History: Thyroid Disease Cardiovascular History: Other - SVT Other Cardiovascular History: SVT Respiratory History: Asthma Other History Of: Negative For: HIV, Hepatitis B, Hepatitis C, Anticoagulant Therapy - Surgical History Surgical History: Yes Surgery Procedure, Year, and Place: Tubal L[place] [place] 3-4 years [place] [facility] [place] Left FOOT Calcaneus repair 10 [place] [facility] [place] TONSILECTOMY/ ADENOIDECTOMY, 1987. gallbladder 2016. Sinus Surgery 2016 - Family History Known Family History: Positive: None, Cardiac Disease - Father from [place] at 48 years old., Other - thyroid problems. Mom w/ blood clot Negative: Hypertension, Diabetes - Social History Alcohol Use: Rare Substance Use Type: None Smoking Status (MU): Former Smoker Type: Cigarettes Amount Used/How Often: 1/2 ppd Length of Time of Smoking/Using Tobacco: 10 years Have You Smoked in the Last Year: No When Did the Patient Quit Smoking/Using Tobacco: 2 WEEKS AGO Household Exposure Type: Cigarettes - Immunization History Most Recent Influenza Vaccination: None Most Recent Pneumonia Vaccination: N/A Review of Systems Constitutional: Negative Skin: Negative Eyes: Negative ENT: Negative Respiratory: Negative Cardiovascular: Chest Pain Gastrointestinal: Nausea, Other - mavis colored stools x 3 days Genitourinary: Negative Motor: Negative Neurovascular: Negative Musculoskeletal: Negative Neurological: Negative Psychological: Negative Is Patient Immunocompromised?: No All Other Systems Reviewed And Are Negative: Yes Physical Exam Triage Information Reviewed: Yes Appearance: Well-Appearing, No Pain Distress, Well-Nourished Vital Signs: Initial Vital Signs Temp 97.5 F 10/20/17 21:10 Pulse 91 10/20/17 21:10 Resp 16 10/20/17 21:10 BP 134/77 10/20/17 21:10 Pulse Ox 96 10/20/17 21:10 Vital Signs Reviewed: Yes Eye Exam: Normal Eyes: Positive: Other: - no icterus. ENT: Positive: Pharynx normal, TMs normal Neck exam: Normal Neck: Positive: Supple, Nontender, No Lymphadenopathy Respiratory Exam: Normal Respiratory: Positive: Chest non-tender, Lungs clear, Normal breath sounds, No respiratory distress, No accessory muscle use. Negative: Crackles, Rhonchi, Stridor, Wheezing Cardiovascular Exam: Normal Cardiovascular: Positive: RRR, No Murmur, Pulses Normal, Other: - no tenderness at site of pain. Abdomen Description: Positive: Nontender, Soft Musculoskeletal Exam: Normal Neurological Exam: Normal Psychological Exam: Normal Skin Exam: Normal - Assessment/Plan Course Of Treatment: EKG- NSR, nml axis, no AV/IV changes, no ST/T changes. no prev. -Pt agrees to go to ER. she declines going by ambulance but by private car. she understands risks of MVA and other causes of delay of dx/evaluation. she has signed AMA ppwk. - Differential Diagnoses - Chest Pain Differential Diagnosis/HQI/PQRI: Aortic Aneurysm, Chest Wall - Clinical Impression Provider Diagnoses: chest pain - Physician Notifications Discussed Patient Care With: Melecio Porter [facility]. Time Discussed With Above Provider: 21:40 Discharge - Discharge Plan Condition: Fair Disposition: AGAINST MEDICAL ADVICE Referrals: Brittanie Bates MD [Primary Care Provider] -
== END 2017-10-20 21:35 | disposition left against medical advice (07) ==
LOC: UCCORT 21:08
DX: R07.2 Precordial pain (principal); M54.9 Dorsalgia, unspecified; Z88.8 Allergy status to other drugs, medicaments and biological substances; Z88.0 Allergy status to penicillin; Z91.048 Other nonmedicinal substance allergy status; Z87.891 Personal history of nicotine dependence
CPT/HCPCS: 93005; 99202; G0463

== ENCOUNTER 2017-12-14 15:55 | Emergency (ER) | payer OTHER ==
[2017-12-14 16:10] VITALS: BP 128/82
--- NOTE | 2017-12-14 16:33 | UC ---
Ear Complaint HPI - HPI Summary HPI Summary: 37 yo c/o decreased hearing on left ear >right. Pt has baseline 40% hearing loss on left ear, does not know the cause of original hearing loss but denies associated URI sx , drainage, pain, recent illnesses, f/c - History of Current Complaint Chief Complaint: UCEar Stated Complaint: BILAT EAR COMPLAINT Time Seen by Provider: 12/14/17 16:21 Hx Obtained From: Patient Hx Last Menstrual Period: 12/08/17 Onset/Duration: Sudden Onset Severity Initially: Moderate Severity Currently: Moderate Pain Intensity: 0 Associated Signs/Symptoms: Positive: Hearing Loss - Allergies/Home Medications Allergies/Adverse Reactions: Allergies Allergy/AdvReac Type Severity Reaction Status Date / Time adhesive tape Allergy Rash Verified 12/14/17 16:12 albuterol Allergy Tachycardia Verified 12/14/17 16:12 Penicillins Allergy Hives Verified 12/14/17 16:12 povidone-iodine Allergy Rash And Verified 12/14/17 16:12 Itching PMH/Surg Hx/FS Hx/Imm Hx - Additional Past Medical History Additional PMH: maria elena's, SVT, 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 Kidney Stone surgery 3-4 years [place] [facility] [place] Left FOOT Calcaneus repair 10 years [place] [facility] [place] TONSILECTOMY/ ADENOIDECTOMY, 1987. gallbladder 2016. Sinus Surgery 2016 - Family History Known Family History: Positive: None, Cardiac Disease - Father from [place] at 48 years old., Other - thyroid problems. Mom w/ blood clot Negative: Hypertension, Diabetes - Social History Alcohol Use: Rare Substance Use Type: None Smoking Status (MU): Former Smoker Type: Cigarettes Amount Used/How Often: 1/2 ppd Length of Time of Smoking/Using Tobacco: 10 years Have You Smoked in the Last Year: No When Did the Patient Quit Smoking/Using Tobacco: 2 WEEKS AGO Household Exposure Type: Cigarettes - Immunization History Most Recent Influenza Vaccination: None Most Recent Pneumonia Vaccination: N/A Review of Systems Constitutional: Negative Skin: Negative Eyes: Negative ENT: Other - decreased hearing in L>R worsened from baseline Respiratory: Negative Cardiovascular: Negative Gastrointestinal: Negative Genitourinary: Negative Motor: Negative Neurovascular: Negative Musculoskeletal: Negative Neurological: Negative Psychological: Negative All Other Systems Reviewed And Are Negative: Yes Physical Exam Triage Information Reviewed: Yes Appearance: No Pain Distress Vital Signs: Initial Vital Signs Temp 36.4 C 12/14/17 16:05 Pulse 88 12/14/17 16:05 Resp 16 12/14/17 16:05 BP 128/82 12/14/17 16:05 Pulse Ox 100 12/14/17 16:05 Eye Exam: Normal ENT: Positive: Other - B/L cerument impaction, No pain with pinna or tragus manipulation Dental Exam: Normal Neck exam: Normal Neck: Positive: 1 Respiratory Exam: Normal Cardiovascular Exam: Normal Abdominal Exam: Normal Musculoskeletal Exam: Normal Neurological Exam: Normal Psychological Exam: Normal Skin Exam: Normal Ear Complaint Course/Dx - Course Course Of Treatment: successfullly disimpacted cerumen with H2O2 and saline irrigation. Pt states hearing improved in right ear but still "feels full" on the left ear. TM fully visualized on B/L ears without signs of infection or effusion. Advised to follow up with her ENT - Differential Dx/Diagnosis Provider Diagnoses: cerumen impaction Discharge - Discharge Plan Condition: Stable Disposition: HOME Patient Education Materials: Cerumen Impaction (ED), Hearing Loss (ED) Referrals: Brittanie Bates MD [Primary Care Provider] - Additional Instructions: Follow up with ENT
== END 2017-12-14 17:45 | disposition home or self-care (01) ==
LOC: UCEAST 15:55
DX: H61.23 Impacted cerumen, bilateral (principal); E06.3 Autoimmune thyroiditis; I47.1 Supraventricular tachycardia; Z88.0 Allergy status to penicillin; Z88.8 Allergy status to other drugs, medicaments and biological substances; Z91.048 Other nonmedicinal substance allergy status; Z87.891 Personal history of nicotine dependence
CPT/HCPCS: 99211; G0463

== ENCOUNTER 2017-12-17 17:35 | Emergency (ER) | payer OTHER ==
[2017-12-17 17:45] VITALS: BP 131/72
[2017-12-17] MEDS ORDERED: methylPREDNISolone 125 MG* 2 ML VIAL IM ONE (18:08)
[2017-12-17] MEDS ORDERED: diPHENhydraMINE PO* 25 MG PO ONE (18:10)
--- NOTE | 2017-12-17 21:08 | UC ---
Skin Complaint HPI - HPI Summary HPI Summary: 37 y/o female presents to the urgent care c/o rash to scalp and neck s/p dying her hair last night. Pt states the same thing happens to her about 8 years ago when she dyed her hair black. Pt states she couldn't sleep b/c of itchiness. She now has some discrete blister on her scalp due to scratching. Pt denies pain , SOB, throat tightening, difficulty breathing,dizziness, abdominal pain, chest pain, N/V/D. Pt took Benadyl PO last night to alleviate symptoms. - History of Current Complaint Hx Obtained From: Patient Hx Last Menstrual Period: 12/08/17 ?: No Onset/Duration: Gradual Onset, Lasting Days - 1 day, Still Present, Worse Since - this morning Skin Exposure Onset/Duration: Days Ago - 1 day Timing: Constant Onset Severity: Mild Current Severity: Moderate Pain Intensity: 0 Pain Scale Used: 0-10 Numeric Location: Discrete - All the scalp and hives around neck Character: Pruritus, Hives - scattered on back of neck, Redness Aggravating Factor(s): Touch Alleviating Factor(s): Antihistamines Associated Signs & Symptoms: Negative: Nausea, Vomiting, Diaphoresis, Difficulty Breathing, Fever, Chills, Cough, Wheezing, Chest Pain, Hoarseness, Throat Tightening, Lightheadedness Related History: Possible Reaction to: Environmental Exposure - hair dye <Funmilayo Curry - Last Filed: 12/17/17 21:12> <Angelina Garcia - Last Filed: 12/18/17 14:42> - History of Current Complaint Chief Complaint: UCSkin Time Seen by Provider: 12/17/17 17:54 Stated Complaint: SWELLING ON NECK, RASH - Allergy/Home Medications Allergies/Adverse Reactions: Allergies Allergy/AdvReac Type Severity Reaction Status Date / Time adhesive tape Allergy Rash Verified 12/17/17 17:45 albuterol Allergy Tachycardia Verified 12/17/17 17:45 Penicillins Allergy Hives Verified 12/17/17 17:45 povidone-iodine Allergy Rash And Verified 12/17/17 17:45 Itching hair dye Allergy Rash Uncoded 12/17/17 17:45 Review of Systems Constitutional: Negative Skin: Rash - scalp and neck, Other - itchiness Eyes: Negative ENT: Negative Respiratory: Negative Cardiovascular: Negative Gastrointestinal: Negative Genitourinary: Negative Motor: Negative Neurovascular: Negative Musculoskeletal: Negative Neurological: Negative Psychological: Negative Is Patient Immunocompromised?: No All Other Systems Reviewed And Are Negative: Yes <LeyTamekaFunmilayo - Last Filed: 12/17/17 21:12> PMH/Surg Hx/FS Hx/Imm Hx Previously Healthy: Yes Endocrine History: Hypothyroidism Other Cardiovascular History: SVT, Psychological History: Anxiety Other History Of: Negative For: HIV, Hepatitis B, Hepatitis C, Anticoagulant Therapy - Surgical History Surgical History: Yes Surgery Procedure, Year, and Place: Tubal Ligation 2006,[facility]. RIGHT Kidney Stone surgery 3-4 years ago [facility],. Left FOOT Calcaneus repair 10 years ago [facility]. TONSILECTOMY/ ADENOIDECTOMY, 1987. gallbladder 2016. Sinus Surgery 2016 - Family History Known Family History: Positive: None, Cardiac Disease - Father from [place] at 48 years old., Other - thyroid problems. Mom w/ blood clot Negative: Hypertension, Diabetes - Social History Occupation: Employed Full-time Lives: With Family Alcohol Use: Rare Substance Use Type: None Smoking Status (MU): Former Smoker Type: Cigarettes Amount Used/How Often: 1/2 ppd Length of Time of Smoking/Using Tobacco: 10 years Have You Smoked in the Last Year: No When Did the Patient Quit Smoking/Using Tobacco: 2 WEEKS AGO Household Exposure Type: Cigarettes - Immunization History Most Recent Influenza Vaccination: None Most Recent Pneumonia Vaccination: N/A <LeyTamekaFunmilayo - Last Filed: 12/17/17 21:12> Physical Exam - Summary Physical Exam Summary: Vital Signs Reviewed: Yes General: well developed, well nourished female sitting in the examining table w/ o any apparent distress Eye Exam: Normal Eyes: Positive: Conjunctiva Clear - PERRLA, EOMI, fundi grossly normal ENT: Positive: Normal ENT inspection, Hearing grossly normal, Pharynx normal, TMs normal, Uvula in the midline. Neck: Positive: Supple, Nontender, No Lymphadenopathy, no swelling Respiratory: Positive: Chest non-tender, Lungs clear, Normal breath sounds, No respiratory distress Cardiovascular: Positive: RRR, No Murmur, Pulses Normal, Brisk Capillary Refill Abdomen Description: Positive: Nontender, No Organomegaly, Soft. Negative: CVA Tenderness (R), CVA Tenderness (L) Bowel Sounds: Positive: Present Musculoskeletal: Positive: Strength Intact, ROM Intact, No Edema Neurological: Positive: Alert, Muscle Tone Normal Psychological Exam: Normal Skin: Positive: rashes - Positive erythematous patchs and hives around the neck and scalp, some scattered discrete blisters w/ clear drainage on top of the scalp and at base of back scalp. mild tender to palpation. No swelling observed. Triage Information Reviewed: Yes Vital Signs: Initial Vital Signs Temp 98.6 F 12/17/17 17:41 Pulse 102 12/17/17 17:41 Resp 18 12/17/17 17:41 BP 131/72 12/17/17 17:41 Pulse Ox 97 12/17/17 17:41 <Funmilayo Curry - Last Filed: 12/17/17 21:12> Vital Signs: Initial Vital Signs Temp 98.6 F 12/17/17 17:41 Pulse 102 12/17/17 17:41 Resp 18 12/17/17 17:41 BP 131/72 12/17/17 17:41 Pulse Ox 97 12/17/17 17:41 <Angelina Garcia - Last Filed: 12/18/17 14:42> Course/Dx - Course Course Of Treatment: 37 y/o female presents to the urgent care c/o rash to scalp and neck s/p dying her hair last night. Pt states the same thing happens to her about 8 years ago when she dyed her hair black. Pt states she couldn't sleep b/c of itchiness. She now has some discrete blister on her scalp due to scratching. Pt denies pain, SOB, throat tightening, difficulty breathing, dizziness, abdominal pain, chest pain, N/V/D. Pt took Benadyl PO last night to alleviate symptoms.Hx obtained. Pt A&OX3 w/ positive erythematous patchs and hives around the neck and scalp, some scattered discrete blisters w/ clear drainage on top of the scalp and at base of back scalp. mild tender to palpation. No swelling observed on examination. Pt Given a t the clinic Methylprednisone IM inj and Benadryl PO. Given by the nurse. Pt tolerated well IM inj and felt better. Pt Prednisone PO taper dose, Benadryl PO and hydrocortisone topical cream to alleviate symptoms. Pt advised if not improvement or worsening of symptoms to return to the clinic or f/u with PCP for further treatment. D/C instruction explained . PT understood and agreed with D/C instructions. Left the clinic ambulating A&OX3 - Differential Diagnoses - Skin Complaint Differential Diagnoses: Allergic Reaction, Anaphylaxis, Contact Dermatitis, Local Allergic Reaction, Urticaria - Diagnoses Provider Diagnoses: 1- Local allergic reaction. 2-scalp rash. 3-urticaria <Funmilayo Curry - Last Filed: 12/17/17 21:12> Discharge <Funmilayo Curry - Last Filed: 12/17/17 21:12> <Angelina Garcia - Last Filed: 12/18/17 14:42> - Discharge Plan Condition: Stable Disposition: HOME Prescriptions: diPHENhydraMINE PO* [Benadryl PO 25 MG TAB*] 25 mg PO Q6H PRN #30 tab PRN Reason: pruritus Hydrocortisone 1% CREAM(NF) 1 applic TOPICAL BID #1 tube methylPREDNISolone [Medrol Dosepak 4 MG*] 4 mg PO .SEE EMILY INSTRUCTION #1 emily Patient Education Materials: Urticaria (ED), Acute Rash (ED) Referrals: Brittanie Bates MD [Primary Care Provider] - 3 Days Additional Instructions: 1-Please take the Medrol Dose emily as directed starting tomorrow. 2-Take Benadryl PO as directed to alleviate itchiness. Avoid driving if it makes you drowsy. 3-Please apply topical cream in all blisters in the scalp to alleviate symptoms. 4-If symptoms do not improve or worsen please f/u with your PCP in 2-3 day for further evaluation and treatment. 5- If you develop SOB, lips swelling please go immediately to the ER for further treatment. Attestation Statement User Type: Provider - I was available for consult. This patient was seen by the [facility]. The patient was not presented to, seen by, or examined by me. Ljj <Angelina Garcia - Last Filed: 12/18/17 14:42>
== END 2017-12-17 18:25 | disposition home or self-care (01) ==
LOC: UCEAST 17:35
DX: L23.4 Allergic contact dermatitis due to dyes (principal)
CPT/HCPCS: 96372; 99212; A9270-GY; G0463; J2930

== ENCOUNTER 2018-01-26 15:55 | Emergency (ER) | payer OTHER ==
--- NOTE | 2018-01-26 16:44 | UC ---
Abdominal Pain Female HPI - HPI Summary HPI Summary: 37 yo woman with PMHx billy hypothyroidism, SVT and asthma and cc of RLQ pain and vom and diarrhea since last evening. Fever up to 101. - History of Current Complaint Chief Complaint: UCAbdominalPain Stated Complaint: ABDOMINAL PAIN,VOMITING,DIARRHEA Time Seen by Provider: 01/26/18 16:18 Hx Obtained From: Patient Hx Last Menstrual Period: 01/07/18 ?: No - S/P tubal Onset/Duration: Gradual Onset - Started yesterday evening, along with vomiting and diarrhea. Timing: Constant Severity Initially: Moderate Severity Currently: Moderate Pain Intensity: 8 Pain Scale Used: 0-10 Numeric Location: Discrete At: RLQ Radiates: No Character: Aching Aggravating Factor(s): Movement Alleviating Factor(s): Position - supine is better. Associated Signs and Symptoms: Positive: Fever - Up to 101 deg., Nausea, Vomiting, Diarrhea - diarrhea about 5 times and vomiting 4 times. Also, NAIN. - Risk Factors Ectopic Risk Factor: Tubal Ligation Ovarian Torsion Risk Factor: Tubal Ligation Allergies/Adverse Reactions: Allergies Allergy/AdvReac Type Severity Reaction Status Date / Time adhesive tape Allergy Rash Verified 12/17/17 17:45 albuterol Allergy Tachycardia Verified 12/17/17 17:45 Penicillins Allergy Hives Verified 12/17/17 17:45 povidone-iodine Allergy Rash And Verified 12/17/17 17:45 Itching hair dye Allergy Rash Uncoded 12/17/17 17:45 Home Medications: Home Medications Calcium Carb/Magnesium Hydrox [Rolaids Chewable Tablet] 2 each PO Q6H 01/26/18 [ History Confirmed 01/26/18] Escitalopram (NF) [Lexapro 5 mg (NF)] 5 mg PO DAILY 01/26/18 [History Confirmed 01/26/18] Ibuprofen 800 mg PO Q8H 01/26/18 [History Confirmed 01/26/18] PMH/Surg Hx/FS Hx/Imm Hx Previously Healthy: No Endocrine History: Thyroid Disease, Hypothyroidism Cardiovascular History: Cardiac Disease - SVT Respiratory History: Asthma Psychological History: Anxiety Other History Of: Negative For: HIV, Hepatitis B, Hepatitis C, Anticoagulant Therapy - Surgical History Surgical History: Yes Surgery Procedure, Year, and Place[place] [place] 3-4 years ago [facility],. [place]OT [place] [facility] [place]/ ADENOIDECTOMY, 1987. gallbladder 2016. Sinus Surgery 2016 - Family History Known Family History: Positive: None, Cardiac Disease - Father from [place] at 48 years old., Other - thyroid problems. Mom w/ blood clot Negative: Hypertension, Diabetes - Social History Lives: With Family Alcohol Use: Rare Substance Use Type: None Smoking Status (MU): Former Smoker Type: Cigarettes Amount Used/How Often: 1/2 ppd Length of Time of Smoking/Using Tobacco: 10 years Have You Smoked in the Last Year: No When Did the Patient Quit Smoking/Using Tobacco: 3 YEARS Household Exposure Type: Cigarettes - Immunization History Most Recent Influenza Vaccination: None Most Recent Pneumonia Vaccination: N/A Review of Systems Constitutional: Fever - up to 101.Took ibu before cominmg. Skin: Negative Eyes: Negative ENT: Negative Respiratory: Negative Cardiovascular: Negative Gastrointestinal: Abdominal Pain, Vomiting, Diarrhea, Nausea Genitourinary: Negative Motor: Negative Neurovascular: Negative Musculoskeletal: Negative Neurological: Negative Psychological: Negative Is Patient Immunocompromised?: No All Other Systems Reviewed And Are Negative: Yes Physical Exam Triage Information Reviewed: Yes Appearance: Well-Nourished, Pain Distress, Obese Vital Signs: Initial Vital Signs Temp 99.4 F 01/26/18 16:03 Pulse 98 01/26/18 16:03 Resp 18 01/26/18 16:03 BP 127/75 01/26/18 16:03 Pulse Ox 100 01/26/18 16:03 Vital Signs Reviewed: Yes Eye Exam: Normal Eyes: Positive: Conjunctiva Clear ENT Exam: Normal ENT: Positive: Normal ENT inspection, Pharynx normal, TMs normal Dental Exam: Normal Neck exam: Normal Neck: Positive: Supple, Nontender, No Lymphadenopathy Respiratory: Positive: Lungs clear, No respiratory distress Cardiovascular: Positive: RRR, No Murmur, Pulses Normal, Brisk Capillary Refill Abdomen Description: Positive: No Organomegaly, Soft, McBurney's Point Tenderness, Peritoneal Signs. Negative: CVA Tenderness (R), CVA Tenderness (L) , Distended, Hepatomegaly, Splenomegaly Bowel Sounds: Positive: Present Pelvic Exam: Positive: Other - NE Musculoskeletal Exam: Normal Neurological Exam: Normal Neurological: Positive: Alert, Muscle Tone Normal Psychological Exam: Normal Skin Exam: Normal Skin: Negative: rashes Abd Pain Female Course/Dx - Differential Dx/Diagnosis Differential Diagnosis: Appendicitis, Renal Colic, Urinary Tract Infection Provider Diagnoses: rule out Appendicitis - Physician Notification/Consults Instructed by Provider To: Transfer - To [place] [facility] Discharge - Sign-Out/Discharge Documenting (check all that apply): Discharge - Discharge Plan Condition: Fair Disposition: [facility] Referrals: Birttanie Bates MD [Primary Care Provider] - - Billing Disposition and Condition Condition: FAIR Disposition: [facility]
[2018-01-26 16:47] VITALS: BP 123/75
== END 2018-01-26 16:40 | disposition short-term general hospital (02) ==
LOC: UCCORT 15:55
DX: R10.31 Right lower quadrant pain (principal); Z88.0 Allergy status to penicillin; Z88.8 Allergy status to other drugs, medicaments and biological substances; Z87.891 Personal history of nicotine dependence
CPT/HCPCS: 99213; G0463